=== PATIENT | female | born 1970 | race African-American/Black ===

== ENCOUNTER 2016-09-03 15:34 | Emergency (ER) | payer OTHER ==
[~2016-09-03] VITALS: Ht 162.6 cm; Wt 81.6 kg
[~2016-09-03 15:34] MED LIST: CYCL10TA2 PO; DOXY100C2 PO; HYDR-971 PO; PRED50TA PO
[2016-09-03 16:44] VITALS: BP 130/79
[2016-09-03] MEDS ORDERED: FLUC150T PO (17:19)
[2016-09-03] MEDS ORDERED: AMOX1TAB61 PO (17:19)
[2016-09-03] MEDS ORDERED: GUAI120L35 PO (17:19)
--- NOTE | 2016-09-03 17:20 | PHYS DOC ---
Past Medical History Past Medical History: Anxiety, Asthma, Depression, Fibromyalgia Additional Past Medical Histor: PTSD, DEGENERATIVE BONE DISEASE, STEP GATE DYSFUNCTION, Lupus Past Surgical History: Cholecystectomy, Tonsillectomy Additional Past Surgical Histo: BLADDER SLING Alcohol Use: None Drug Use: None Adult General Chief Complaint Chief Complaint: Congestion HPI HPI Patient is a 46 year old female presents emergency Department today with complaint of sinus pressure and pain as well as nasal congestion, nonproductive cough and subjective fevers and chills that began 3 days ago. Patient states that she has a history of lupus. She is on immunosuppressive drugs. This is primarily for protection of her kidneys. She denies antibiotic use, hospitalization or foreign travel within the past 90 days. She denies any concerns for today. Review of Systems Review of Systems Constitutional: Denies fever or chills [] Eyes: Denies change in visual acuity, redness, or eye pain [] HENT: Denies nasal congestion or sore throat [] Respiratory: Denies cough or shortness of breath [] Cardiovascular: No additional information not addressed in HPI [] GI: Denies abdominal pain, nausea, vomiting, bloody stools or diarrhea [] : Denies dysuria or hematuria [] Musculoskeletal: Denies back pain or joint pain [] Integument: Denies rash or skin lesions [] Neurologic: Denies headache, focal weakness or sensory changes [] Endocrine: Denies polyuria or polydipsia [] Allergies Allergies Allergies Coded Allergies Type Severity Reaction Last Updated Verified hydrocodone Allergy Intermediate Rash 05/08/16 Yes latex Allergy Intermediate 05/08/16 Yes Physical Exam Physical Exam Constitutional: Well developed, well nourished, no acute distress, non-toxic appearance. [] HENT: Normocephalic, atraumatic, bilateral external ears normal, oropharynx moist, no oral exudates, nose normal. [] Eyes: PERRLA, EOMI, conjunctiva normal, no discharge. [] Neck: Normal range of motion, no tenderness, supple, no stridor. [] Cardiovascular:Heart rate regular rhythm, no murmur [] Lungs & Thorax: Bilateral breath sounds clear to auscultation [] Abdomen: Bowel sounds normal, soft, no tenderness, no masses, no pulsatile masses. [] Skin: Warm, dry, no erythema, no rash. [] Back: No tenderness, no CVA tenderness. [] Extremities: No tenderness, no cyanosis, no clubbing, ROM intact, no edema. [] Neurologic: Alert and oriented X 3, normal motor function, normal sensory function, no focal deficits noted. [] Psychologic: Affect normal, judgement normal, mood normal. [] Current Patient Data Vital Signs Vital Signs Date Time Temp Pulse Resp B/P Pulse Ox O2 Delivery O2 Flow Rate FiO2 09/03/16 16:44 98.6 82 18 130/79 100 Room Air 98.6 EKG EKG [] Radiology/Procedures Radiology/Procedures [] Course & Med Decision Making Course & Med Decision Making Pertinent Labs and Imaging studies reviewed. (See chart for details) [] Dragon Disclaimer Dragon Disclaimer This electronic medical record was generated, in whole or in part, using a voice recognition dictation system. Departure Departure Impression: Primary Impression: Sinusitis, acute Disposition: HOME, SELF-CARE Condition: GOOD Referrals: DC CALLOWAY MD (PCP) Patient Instructions: Sinusitis, [id number] Additional Instructions: 1. Take the medication as prescribed. You can use Afrin nasal spray (over-the- counter) twice a day for 3 days. You can also use an pdyy-xxl-owftodw decongestant such as Mucinex D twice a day as well. Be sure you drink 8-10, 10 ounce glasses of water daily 2. Review the discharge instructions provided for self-care and reasons to return the emergency department. 3. Contact primary care doctor for follow-up reevaluation on or Saturday of this week. Scripts Guaifenesin/Codeine Phosphate (Codeine-Guaifen 10-100 mg/5 ml)120 Ml [id number] Ml PO Q8HRS COUGH #120 LIQUID Prov:MORENA CABALLERO 09/03/16 Fluconazole (Diflucan)150 Mg Tablet1 Tab PO ONCE #1 TAB Ref 1 Prov:MORENA CABALLERO 09/03/16 Amoxicillin/Potassium Clav (Augmentin 875-125 Tablet)1 Each Tablet1 Tab PO BID # 20 TAB Prov:MORENA CABALLERO 09/03/16 MORENA CABALLERO Sep 03, 2016 17:20
== END 2016-09-03 17:32 | disposition home or self-care (01) ==
LOC: ER 15:34
DX: J01.90 Acute sinusitis, unspecified (principal); J45.909 Unspecified asthma, uncomplicated; M79.7 Fibromyalgia; F43.10 Post-traumatic stress disorder, unspecified; M32.9 Systemic lupus erythematosus, unspecified; Z90.89 Acquired absence of other organs; Z91.040 Latex allergy status; Z88.5 Allergy status to narcotic agent
CPT/HCPCS: 99283

== ENCOUNTER 2017-03-27 20:27 | Emergency (ER) | payer OTHER ==
[~2017-03-27] VITALS: Ht 162.6 cm; Wt 88.5 kg
[~2017-03-27 20:27] MED LIST changes: +AMOX1TAB61 PO; +FLUC150T PO; +GUAI120L35 PO
[2017-03-27 20:36] VITALS: BP 138/67
--- NOTE | 2017-03-27 21:00 | PHYS DOC ---
Past Medical History Past Medical History: Anxiety, Asthma, Depression, Fibromyalgia Additional Past Medical Histor: PTSD, DEGENERATIVE BONE DISEASE, STEP GATE DYSFUNCTION, Lupus Past Surgical History: Cholecystectomy, Tonsillectomy Additional Past Surgical Histo: BLADDER SLING Alcohol Use: None Drug Use: None Adult General Chief Complaint Chief Complaint: MECHANICAL FALL HPI HPI Patient is a 46 year old female presents to the emergency department stating that 300 this morning she fell in the bathtub. She states that she was running out of the bathtub when her right arm gave out and she fell. She states that she has having cervical spine pain thoracic spine or lumbar spine pain with right lower back pain and discomfort. Patient is also complaining of right shoulder pain and discomfort. Peripheral pulses are 2+ cap refill brisk less than 2 seconds. Equal ore crusher noted bilaterally. Review of Systems Review of Systems Constitutional: Denies fever or chills [] Eyes: Denies change in visual acuity, redness, or eye pain [] HENT: Denies nasal congestion or sore throat [] Respiratory: Denies cough or shortness of breath [] Cardiovascular: No additional information not addressed in HPI [] GI: Denies abdominal pain, nausea, vomiting, bloody stools or diarrhea [] : Denies dysuria or hematuria [] Musculoskeletal: Complaint of spine pain and discomfort, right hip pain and discomfort and right shoulder pain and discomfort Integument: Denies rash or skin lesions [] Neurologic: Denies headache, focal weakness or sensory changes [] Endocrine: Denies polyuria or polydipsia [] Current Medications Current Medications Current Medications Medications (Trade) Dose Ordered Sig/Amarilys Start Time Stop Time Status Last Admin Dose Admin Cyclobenzaprine HCl (Flexeril) 10 mg 1X ONCE 03/27/17 21:15 03/27/17 21:16 DC 03/27/17 21:02 10 MG Ibuprofen (Motrin) 800 mg 1X ONCE 03/27/17 21:15 03/27/17 21:16 DC 03/27/17 21:02 800 MG Allergies Allergies Allergies Coded Allergies Type Severity Reaction Last Updated Verified hydrocodone Allergy Intermediate Rash 05/08/16 Yes latex Allergy Intermediate 05/08/16 Yes Physical Exam Physical Exam Constitutional: Well developed, well nourished, no acute distress, non-toxic appearance. [] HENT: Normocephalic, atraumatic, bilateral external ears normal, oropharynx moist, no oral exudates, nose normal. [] Eyes: PERRLA, EOMI, conjunctiva normal, no discharge. [] Neck: Normal range of motion, no tenderness, supple, no stridor. [] Cardiovascular:Heart rate regular rhythm, no murmur [] Lungs & Thorax: Bilateral breath sounds clear to auscultation [] Abdomen: Bowel sounds normal, soft, no tenderness, no masses, no pulsatile masses. [] Skin: Warm, dry, no erythema, no rash. No bruising or discoloration in the lower back area. Back: Patient with cervical spine, thoracic spine or lumbar spine tenderness. Patient was noted to have right lower lumbar pain and discomfort. No step-offs no deformities and no crepitus noted. C-collar was placed. Extremities: Right shoulder tenderness, no cyanosis, no clubbing, ROM intact, no edema. Equal ore crusher noted by bilateral upper extremities. Patient was noted to have full range of motion of the right shoulder as she was leaning around to help for her sweat pants down for evaluation of the lower back area. Neurologic: Alert and oriented X 3, normal motor function, normal sensory function, no focal deficits noted. [] Psychologic: Affect normal, judgement normal, mood normal. [] Current Patient Data Vital Signs Vital Signs Date Time Temp Pulse Resp B/P (MAP) Pulse Ox O2 Delivery O2 Flow Rate FiO2 03/27/17 20:36 98.1 90 18 100 Room Air 98.1 EKG EKG [] Radiology/Procedures Radiology/Procedures [][facility] [address] [place] [address] IMAGING REPORT Signed PATIENT: LEXIE AGUILAR ACCOUNT: [id number] : 1970 LOCATION: ER AGE: 46 SEX: F EXAM STATUS: REG ER ORD. PHYSICIAN: LARA VERA APRN REASON: neck pain after falling in bath tub PROCEDURE: CT CERVICAL SPINE WO CONTRAST CT cervical spine History: Fall, pain. Comparison: None. Technique: Noncontrast CT of the cervical spine was performed using helical technique. Axial, sagittal, coronal reconstructions were obtained. Exposure: One or more of the following individualized dose reduction techniques were utilized for this examination: 1. Automated exposure control 2. Adjustment of the mA and/or kV according to patient size 3. Use of iterative reconstruction technique Findings: There is no evidence of acute fracture or acute malalignment involving the cervical spine. No prevertebral soft tissue swelling is identified. There is reversal of normal cervical lordosis which may be from positioning or spasm. Multilevel degeneration is seen. Impression: No evidence of acute traumatic injury involving the cervical spine. Electronically signed by: Marcin Scott MD (03/27/2017 9:40 PM) [facility] DICTATED and SIGNED BY: MARCIN SCOTT MD DATE: 03/27/172137 CC: DC CALLOWAY MD; LARA VERA APRN ~ [facility] [address] [place] [address] IMAGING REPORT Signed PATIENT: LEXIE AGUILAR ACCOUNT: [id number] : 1970 LOCATION: ER AGE: 46 SEX: F EXAM STATUS: REG ER ORD. PHYSICIAN: LARA VERA APRN REASON: fall in bath tub this morning pain to entire spine PROCEDURE: CT LUMBAR SPINE WO CONTRAST CT of the thoracic and lumbar spine History: Fall in bathtub, back pain. Technique: Noncontrast CT of the thoracic and lumbar spine was performed. Axial, sagittal, and coronal 2-D reconstructions were obtained of both the thoracic and lumbar spine. Exposure: One or more of the following individualized dose reduction techniques were utilized for this examination: 1. Automated exposure control 2. Adjustment of the mA and/or kV according to patient size 3. Use of iterative reconstruction technique Findings: There is no evidence of acute traumatic injury involving the thoracic spine. Alignment appears anatomic. There are 11 rib-bearing thoracic-type vertebral bodies. T12 vertebral body is without significant rib formation. There is no evidence of acute traumatic injury involving the lumbar spine. Alignment appears anatomic. Transitional anatomy is seen with partial sacralization of the L5 vertebral body. Advanced facet degeneration is seen at L4-5 with lesser facet degeneration at L3-4 and L5-S1. There is suspected spinal stenosis at L4-5. There is suspected ectopic right pelvic kidney. Impression: 1. No evidence of acute traumatic injury to the thoracic or lumbar spine. 2. Transitional anatomy. 3. Lumbar degeneration. Suspect spinal stenosis at L4-5. Electronically signed by: Marcin Scott MD (03/27/2017 9:48 PM) [facility] DICTATED and SIGNED BY: MARCIN SCOTT MD DATE: 03/27/172140 CC: DC CALLOWAY MD; LARA VERA APRN ~ [facility] [address] [place] [address] IMAGING REPORT Signed PATIENT: LEXIE AGUILAR ACCOUNT: [id number] : 1970 LOCATION: ER AGE: 46 SEX: F EXAM STATUS: REG ER ORD. PHYSICIAN: LARA VERA APRN REASON: fall in bath tub this morning pain to entire spine PROCEDURE: CT THORACIC SPINE WO CONTRAST CT of the thoracic and lumbar spine History: Fall in bathtub, back pain. Technique: Noncontrast CT of the thoracic and lumbar spine was performed. Axial, sagittal, and coronal 2-D reconstructions were obtained of both the thoracic and lumbar spine. Exposure: One or more of the following individualized dose reduction techniques were utilized for this examination: 1. Automated exposure control 2. Adjustment of the mA and/or kV according to patient size 3. Use of iterative reconstruction technique Findings: There is no evidence of acute traumatic injury involving the thoracic spine. Alignment appears anatomic. There are 11 rib-bearing thoracic-type vertebral bodies. T12 vertebral body is without significant rib formation. There is no evidence of acute traumatic injury involving the lumbar spine. Alignment appears anatomic. Transitional anatomy is seen with partial sacralization of the L5 vertebral body. Advanced facet degeneration is seen at L4-5 with lesser facet degeneration at L3-4 and L5-S1. There is suspected spinal stenosis at L4-5. There is suspected ectopic right pelvic kidney. Impression: 1. No evidence of acute traumatic injury to the thoracic or lumbar spine. 2. Transitional anatomy. 3. Lumbar degeneration. Suspect spinal stenosis at L4-5. Electronically signed by: Marcin Scott MD (03/27/2017 9:48 PM) [facility] DICTATED and SIGNED BY: MARCIN SCOTT MD DATE: 03/27/172140 CC: DC CALLOWAY MD; LARA VERA APRN ~ Course & Med Decision Making Course & Med Decision Making Pertinent Labs and Imaging studies reviewed. (See chart for details) CT scan of the cervical spine thoracic spine or lumbar spine was negative cervix c-collar was removed. X-rays of the shoulder in the hip and pelvis were negative for any bony abnormalities per Dr. Carpenter. Patient will be discharged home with recommendations for ibuprofen 800 mg every 8 hours with Flexeril. Patient was instructed Flexeril will cause drowsiness do not take any be alert and oriented. Recommended ice packs on 20 minutes off 20 minutes several times a day. Patient was recommended to follow-up with her primary care physician in the next 7-10 days. Patient will be discharged home in stable condition with signs and symptoms to return back to emergency department. All questions and concerns been answered at patient's bedside. [] Dragon Disclaimer Dragon Disclaimer This electronic medical record was generated, in whole or in part, using a voice recognition dictation system. Departure Departure Impression: Primary Impression: Fall in bathtub Additional Impressions: Back pain Right hip pain Disposition: 01 HOME, SELF-CARE Condition: STABLE Referrals: DC CALLOWAY MD (PCP) Patient Instructions: Back Pain, Adult, [id number], Fall Prevention and Home Safety, Arku-ki-Yesr, Hip Pain Additional Instructions: Activity as tolerated. Medication as prescribed. Ibuprofen 800 mg every 8 hours with food stop taking few develop an upset stomach. Flexeril will cause drowsiness do not take any be alert and oriented. Ice packs on 20 minutes off 20 minutes several times a day. Elevation as much as possible. Follow-up to primary care physician next 7-10 days. Return back to emergency prior signs symptoms become worse. Scripts Cyclobenzaprine Hcl (CYCLOBENZAPRINE HCL) 10 Mg Tablet 1 TAB PO TID Y for MUSCLE SPASMS, #30 TAB Prov: LARA VERA APRN 03/27/17 Problem Qualifiers Primary Impression: Fall in bathtub Encounter type: initial encounter Qualified Codes: W18.2XXA - Fall in (into ) shower or empty bathtub, initial encounter Additional Impressions: Back pain Back pain location: back pain in unspecified location Chronicity: unspecified Back pain laterality: unspecified Qualified Codes: M54.9 - Dorsalgia, unspecified LARA VERA BLOOD DONOR RECRUITER Mar 27, 2017 21:00
[2017-03-27] MEDS ORDERED: IBUPROFEN 800 MG TABLET. PO ONE (21:15)
[2017-03-27] MEDS ORDERED: CYCLOBENZAPRINE 10 MG TABLET. PO ONE (21:15)
--- NOTE | 2017-03-27 21:44 | RAD ---
CT cervical spine History: Fall, pain. Comparison: None. Technique: Noncontrast CT of the cervical spine was performed using helical technique. Axial, sagittal, coronal reconstructions were obtained. Exposure: One or more of the following individualized dose reduction techniques were utilized for this examination: 1. Automated exposure control 2. Adjustment of the mA and/or kV according to patient size 3. Use of iterative reconstruction technique Findings: There is no evidence of acute fracture or acute malalignment involving the cervical spine. No prevertebral soft tissue swelling is identified. There is reversal of normal cervical lordosis which may be from positioning or spasm. Multilevel degeneration is seen. Impression: No evidence of acute traumatic injury involving the cervical spine. Electronically signed by: Marcin Manzanares MD (03/27/2017 9:40 PM) [facility]
--- NOTE | 2017-03-27 21:51 | RAD ---
CT of the thoracic and lumbar spine History: Fall in bathtub, back pain. Technique: Noncontrast CT of the thoracic and lumbar spine was performed. Axial, sagittal, and coronal 2-D reconstructions were obtained of both the thoracic and lumbar spine. Exposure: One or more of the following individualized dose reduction techniques were utilized for this examination: 1. Automated exposure control 2. Adjustment of the mA and/or kV according to patient size 3. Use of iterative reconstruction technique Findings: There is no evidence of acute traumatic injury involving the thoracic spine. Alignment appears anatomic. There are 11 rib-bearing thoracic-type vertebral bodies. T12 vertebral body is without significant rib formation. There is no evidence of acute traumatic injury involving the lumbar spine. Alignment appears anatomic. Transitional anatomy is seen with partial sacralization of the L5 vertebral body. Advanced facet degeneration is seen at L4-5 with lesser facet degeneration at L3-4 and L5-S1. There is suspected spinal stenosis at L4-5. There is suspected ectopic right pelvic kidney. Impression: 1. No evidence of acute traumatic injury to the thoracic or lumbar spine. 2. Transitional anatomy. 3. Lumbar degeneration. Suspect spinal stenosis at L4-5. Electronically signed by: Marcin Manzanares MD (03/27/2017 9:48 PM) [facility]
[2017-03-27] MEDS ORDERED: CYCL10TA2 PO (22:12)
--- NOTE | 2017-03-28 07:54 | RAD ---
Indication fall. A. Internally and externally rotated views of the right shoulder as well as a Y view were obtained. No bony abnormality is seen.
--- NOTE | 2017-03-28 07:55 | RAD ---
Indication fall. Pain. An AP view of the pelvis was obtained as well as targeted AP and frog leg views of the right hip. No acute or significant bony finding is seen.
== END 2017-03-27 22:17 | disposition home or self-care (01) ==
LOC: ER 20:27
DX: M54.5 Low back pain (principal); M25.511 Pain in right shoulder; M79.7 Fibromyalgia; F43.10 Post-traumatic stress disorder, unspecified; M32.9 Systemic lupus erythematosus, unspecified; J45.909 Unspecified asthma, uncomplicated; Z90.49 Acquired absence of other specified parts of digestive tract; Z88.5 Allergy status to narcotic agent; Z91.040 Latex allergy status; W18.2XXA Fall in (into) shower or empty bathtub, initial encounter; Y93.E1 Activity, personal bathing and showering; Y99.8 Other external cause status; Y92.89 Other specified places as the place of occurrence of the external cause
CPT/HCPCS: 72125; 72128; 72131; 73030; 73502; 99284-25

== ENCOUNTER 2017-10-15 20:38 | Emergency (ER) | payer OTHER ==
[2017-10-15 20:56] LABS: URINE HCG POC HCG NEGATIVE (Negative)
[2017-10-15 21:05] LABS: BILIRUBIN,URINE NEGATIVE (NEG); CLARITY,URINE CLEAR; COLOR,URINE YELLOW; GLUCOSE,URINE NEGATIVE (NEG); NITRITE,URINE NEGATIVE (NEG); PH,URINE 5.5; PROTEIN,URINE 100 mg/dL (NEG-TRACE)
[2017-10-15 21:09] LABS: BACTERIA,URINE FEW /HPF (0-FEW); RBC,URINE 0 /HPF (0-2); SQUAMOUS EPITHELIAL CELL,UR MOD /LPF
[2017-10-15 21:22] LABS: ADD MAN DIFF? NO
[2017-10-15 21:32] LABS: BASO # 0.1 x10^3/uL (0.0-0.2); BASO % 1 % (0-3); EOS % 0 % (0-3); HEMATOCRIT 34.5 % (36.0-47.0); HEMOGLOBIN 11.2 g/dL (12.0-15.5); LYMPH # 1.7 x10^3/uL (1.0-4.8); LYMPH % 15 % (24-48); MEAN CORPUSCULAR HEMOGLOBIN 25 pg (25-35); MEAN CORPUSCULAR HGB CONC 32 g/dL (31-37); MEAN CORPUSCULAR VOLUME 77 fL (79-100); MONO # 1.2 x10^3/uL (0.0-1.1); MONO % 10 % (0-9); NEUT # 8.8 x10^3uL (1.8-7.7); NEUT % 75 % (31-73); PLATELET COUNT 260 x10^3/uL (140-400); RED CELL DISTRIBUTION WIDTH 16.5 % (11.5-14.5); WHITE BLOOD COUNT 11.8 x10^3/uL (4.0-11.0)
[2017-10-15] MEDS: IV NORMAL SALINE 1000ML BAG 1,000 ML IV (21:35)
[2017-10-15] MEDS: KETOROLAC 30 MG/ML INJ. IV (21:35)
[2017-10-15 21:41] LABS: ANION GAP 10 (6-14); BLOOD UREA NITROGEN 10 mg/dL (7-20); BUN/CREATININE RATIO 8 (6-20); CALCIUM 9.1 mg/dL (8.5-10.1); CARBON DIOXIDE 26 mmol/L (21-32); CHLORIDE 103 mmol/L (98-107); CREATININE 1.2 mg/dL (0.6-1.0); GFR 57.8; GLUCOSE 94 mg/dL (70-99); POTASSIUM 3.7 mmol/L (3.5-5.1); SODIUM 139 mmol/L (136-145)
[2017-10-15 21:45] LABS: ALBUMIN 3.4 g/dL (3.4-5.0); ALBUMIN/GLOBULIN RATIO 0.8 (1.0-1.7); ALK PHOS 69 U/L (46-116); ALT (SGPT) 20 U/L (14-59); AST (SGOT) 17 U/L (15-37); LIPASE 164 U/L (73-393); TOTAL BILIRUBIN 0.7 mg/dL (0.2-1.0); TOTAL PROTEIN 7.8 g/dL (6.4-8.2)
[2017-10-17 14:35] LABS: CHLAMYDIA PROBE Negative (Negative); GC PROBE Negative (Negative)
== END 2017-10-15 22:22 | disposition home or self-care (01) ==
LOC: ER 20:38
DX: N76.0 Acute vaginitis (principal); B96.89 Other specified bacterial agents as the cause of diseases classified elsewhere; R10.84 Generalized abdominal pain; R10.2 Pelvic and perineal pain; F43.10 Post-traumatic stress disorder, unspecified; M32.9 Systemic lupus erythematosus, unspecified; M79.7 Fibromyalgia; J45.909 Unspecified asthma, uncomplicated; Z90.49 Acquired absence of other specified parts of digestive tract; Z88.5 Allergy status to narcotic agent; Z91.040 Latex allergy status
CPT/HCPCS: 36415; 74176; 80053; 81001; 81025; 83690; 85025; 87086; 87491; 87591; 96361; 96374; 99285-25; J1885; J7030; Q0111

== ENCOUNTER 2018-08-04 17:27 | Emergency (ER) | payer OTHER ==
[~2018-08-04] VITALS: Ht 162.6 cm; Wt 92.5 kg
[~2018-08-04 17:27] MED LIST changes: +DICL50TA4 PO; +HYDR-3164 PO; -HYDR-971 PO; +METR500T PO
[2018-08-04 19:00] VITALS: BP 158/118
[2018-08-04] MEDS ORDERED: FLUC150T PO (19:13)
--- NOTE | 2018-08-04 19:13 | PHYS DOC ---
Past Medical History Past Medical History: Anxiety, Asthma, Depression, Fibromyalgia, Other Additional Past Medical Histor: PTSD,DEGENERATIVE BONE DISEASE,STEP GATE DYSFUNCTION,Lupus (REMA JAUREGUI APRN) Past Surgical History: Cholecystectomy, , Tonsillectomy, Other Additional Past Surgical Histo: BLADDER SLING (REMA JAUREGUI APRN) Alcohol Use: None Drug Use: Marijuana (REMA JAUREGUI APRN) Adult General Chief Complaint Chief Complaint: VAGINAL PROBLEM HPI HPI Patient is a 48-year-old female presenting today requesting treatment for yeast infection. She states she's had vaginal discharge for a couple days consistent with yeast infection. She is requesting treatment and no testing. Denies any concerns for STD. (REMA JAUREGUI APRN) Review of Systems Review of Systems Constitutional: Denies fever or chills [] GI: Denies abdominal pain, nausea, vomiting, bloody stools or diarrhea [] female : Reports vaginal discharge : Denies dysuria or hematuria [] Musculoskeletal: Denies back pain or joint pain [] Integument: Denies rash or skin lesions [] Neurologic: Denies headache, focal weakness or sensory changes [] [] All other systems were reviewed and found to be within normal limits, except as documented in this note. (REMA JAUREGUI APRN) Allergies Allergies Allergies Coded Allergies Type Severity Reaction Last Updated Verified hydrocodone Allergy Intermediate Rash 05/08/16 Yes latex Allergy Intermediate 05/08/16 Yes (MARJORIE SCHWARTZ MD) Physical Exam Physical Exam Constitutional: Well developed, well nourished, no acute distress, non-toxic appearance. [] Abdomen: Bowel sounds normal, soft, no tenderness, no masses, no pulsatile masses. [] pelvic-patient refused Skin: Warm, dry, no erythema, no rash. [] Back: No tenderness, no CVA tenderness. [] Extremities: No tenderness, no cyanosis, no clubbing, ROM intact, no edema. [] Neurologic: Alert and oriented X 3, normal motor function, normal sensory function, no focal deficits noted. [] Psychologic: Affect normal, judgement normal, mood normal. [] (REMA JAUREGUI APRN) Current Patient Data Vital Signs Vital Signs Date Time Temp Pulse Resp B/P (MAP) Pulse Ox O2 Delivery O2 Flow Rate FiO2 2/25/19 19:00 99.0 93 17 158/118 (131) 100 Room Air 99.0 (MARJORIE SCHWARTZ MD) EKG EKG [] (REMA JAUREGUI APRN) Radiology/Procedures Radiology/Procedures [] (REMA JAUREGUI APRN) Course & Med Decision Making Course & Med Decision Making Pertinent Labs and Imaging studies reviewed. (See chart for details) This is a 48-year-old female patient presenting to the ED today requesting treatment for yeast infection. She states she's had discharge consistent with yeast infection for couple days. She has refused to be tested. Prescription for fluconazole given. Follow-up with PCP or [employer] in 1-2 weeks. (REMA JAUREGUI APRN) Course & Med Decision Making Staff Physician Addendum: I was working in the ER during the course of this patient's visit. I was available for consultation as needed, but I was not directly involved in the care of this patient. (MARJORIE SCHWARTZ MD) Dragon Disclaimer Dragon Disclaimer This electronic medical record was generated, in whole or in part, using a voice recognition dictation system. (REMA JAUREGUI APRN) Departure Departure Impression: Primary Impression: Yeast infection Disposition: 01 HOME, SELF-CARE Condition: STABLE Referrals: DC CALLOWAY MD (PCP) Follow-up in 1-2 weeks Patient Instructions: Janis Infection, Adult Additional Instructions: You were evaluated for yeast infection, prescription for fluconazole was given. Follow-up with your doctor in 1-2 weeks. Scripts Fluconazole (DIFLUCAN) 150 Mg Tablet 1 TAB PO ONCE, #1 TAB 1 Refill Prov: REMA JAUREGUI APRN 08/04/18 REMA JAUREGUI APRN Aug 04, 2018 19:13 MARJORIE SCHWARTZ MD Aug 04, 2018 21:47
== END 2018-08-04 19:26 | disposition home or self-care (01) ==
LOC: ER 17:27
DX: B37.9 Candidiasis, unspecified (principal); N89.8 Other specified noninflammatory disorders of vagina; J45.909 Unspecified asthma, uncomplicated; Z91.040 Latex allergy status; Z88.5 Allergy status to narcotic agent
CPT/HCPCS: 99283

== ENCOUNTER 2018-09-17 13:59 | Emergency (ER) | payer OTHER ==
[~2018-09-17] VITALS: Ht 162.6 cm; Wt 83.9 kg
[2018-09-17 14:18] VITALS: BP 144/87
[2018-09-17] MEDS ORDERED: predniSONE 10 MG TABLET PO ONE (14:30)
[2018-09-17] MEDS ORDERED: IPRATRPIUM/ALBUTEROL 0.5/2.5MG 3 ML NEBU. NEB ONE (14:30)
--- NOTE | 2018-09-17 14:48 | PHYS DOC ---
Past Medical History Past Medical History: Anxiety, Asthma, Depression, Fibromyalgia, Other Additional Past Medical Histor: PTSD,DEGENERATIVE BONE DISEASE,STEP GATE DYSFUNCTION,Lupus Past Surgical History: Cholecystectomy, , Tonsillectomy, Other Additional Past Surgical Histo: BLADDER SLING, R arm Alcohol Use: Rarely Drug Use: Marijuana Adult General Chief Complaint Chief Complaint: Congestion HPI HPI Patient is a 48 year old female with history of fibromyalgia, depression, anxiety, asthma, who presents to the ED today with multiple complaints. Patient is complaining of a cough productive in nature with greenish sputum, nasal congestion, mild frontal headache sore throat, symptoms began 5 days ago. Denies any actual fever. Denies any chest pain or shortness of breath. She states she tried her breathing treatments with no relief of her symptoms. She also states she has seasonal allergies and has been trying pciu-amq-qzgrblw remedies but she doesn't remember the names. On further interrogation she states she is on Flonase. Review of Systems Review of Systems Constitutional: Denies fever or chills [] Eyes: Denies change in visual acuity, redness, or eye pain [] HENT: Reports nasal congestion and sore throat [] Respiratory: Reports a productive cough, denies shortness of breath [] Cardiovascular: No additional information not addressed in HPI [] GI: Denies abdominal pain, nausea, vomiting, bloody stools or diarrhea [] : Denies dysuria or hematuria [] Musculoskeletal: Denies back pain or joint pain [] Integument: Denies rash or skin lesions [] Neurologic: Reports headache, denies focal weakness or sensory changes [] All other systems were reviewed and found to be within normal limits, except as documented in this note. Current Medications Current Medications Current Medications Medications (Trade) Dose Ordered Sig/Amarilys Start Time Stop Time Status Last Admin Dose Admin Albuterol/ Ipratropium (Duoneb) 3 ml 1X ONCE 09/17/18 14:30 09/17/18 14:31 DC 09/17/18 14:52 3 ML Prednisone (Prednisone) 50 mg 1X ONCE 09/17/18 14:30 09/17/18 14:31 DC 09/17/18 14:54 50 MG Allergies Allergies Allergies Coded Allergies Type Severity Reaction Last Updated Verified hydrocodone Allergy Intermediate Rash 05/08/16 Yes latex Allergy Intermediate 05/08/16 Yes Physical Exam Physical Exam Constitutional: Well developed, well nourished, no acute distress, non-toxic appearance. [] HENT: Normocephalic, atraumatic, bilateral external ears normal, oropharynx moist, no oral exudates, nose normal. [] Eyes: PERRLA, EOMI, conjunctiva normal, no discharge. [] Neck: Normal range of motion, no tenderness, supple, no stridor. [] Cardiovascular:Heart rate regular rhythm, no murmur [] Lungs & Thorax: Bilateral breath sounds clear to auscultation [] Abdomen: Bowel sounds normal, soft, no tenderness, no masses, no pulsatile masses. [] Skin: Warm, dry, no erythema, no rash. [] Back: No tenderness, no CVA tenderness. [] Extremities: No tenderness, no cyanosis, no clubbing, ROM intact, no edema. [] Neurologic: Alert and oriented X 3, normal motor function, normal sensory function, no focal deficits noted. Cranial nerves II through XII intact Psychologic: Affect normal, judgement normal, mood normal. [] Current Patient Data Vital Signs Vital Signs Date Time Temp Pulse Resp B/P (MAP) Pulse Ox O2 Delivery O2 Flow Rate FiO2 09/17/18 14:56 Room Air 09/17/18 14:18 99.4 86 16 144/87 (106) 96 99.4 EKG EKG [] Radiology/Procedures Radiology/Procedures []PROCEDURE: CHEST PA & LATERAL Chest, PA and Lateral: Technique: PA and lateral views of the chest were obtained. History: Cough. Comparison: 06/17/2013. Findings: The heart and pulmonary vasculature appear within normal limits. The lungs are clear. The pleural margins are clear. Impression: No acute chest process is seen. Electronically signed by: Nestor Ritchie MD (09/17/2018 3:05 PM) [facility] DICTATED and SIGNED BY: NESTOR RITCHIE MD DATE: 09/17/18 0695 Course & Med Decision Making Course & Med Decision Making Pertinent Labs and Imaging studies reviewed. (See chart for details) This is a 48-year-old female patient presenting to the ED today with a productive cough, nasal congestion, sore throat, headache, symptoms began 5 days ago. Has history of asthma anxiety and seasonal allergies, she feels both of flared up. Patient is in no distress. Vitals are stable. Chest x-ray is negative. Given a DuoNeb treatment, lungs have stayed clear. Also started on prednisone. Patient was discharged to home. Encouraged to take rguh-xpb-cputcra Claritin-D or Zyrtec-D, encouraged to continue using Flonase, given prescription for prednisone. Encouraged to continue breathing treatments at home. Follow-up with the PCP in 1-2 weeks. Dragon Disclaimer Dragon Disclaimer This electronic medical record was generated, in whole or in part, using a voice recognition dictation system. Departure Departure Impression: Primary Impression: Asthma Additional Impression: Seasonal allergies Disposition: HOME, SELF-CARE Condition: STABLE Referrals: DC CALLOWAY MD (PCP) follow up in 1-2 weeks Patient Instructions: Allergies, Generic, Asthma, Adult Additional Instructions: You were evaluated in the emergency room for seasonal allergies as well as asthma symptoms. Continue using breathing treatments as needed. Take the prescribed prednisone as ordered. Consider taking Claritin-D or Zyrtec-D it will help with allergies as well as congestion. Continue using Flonase. Scripts Albuterol Sulfate (VENTOLIN HFA INHALER) 18 Gm Hfa.aer.ad 2 PUFF INH Q4HRS for FOR ASTHMA, #1 INHALER 0 Refills Prov: REMA JAUREGUI APRN 09/17/18 Prednisone (PREDNISONE) 50 Mg Tablet 1 TAB PO DAILY, #4 TAB Prov: REMA JAUREGUI APRN 09/17/18 Problem Qualifiers Primary Impression: Asthma Asthma severity: mild Asthma persistence: intermittent Asthma complication type: uncomplicated Qualified Codes: J45.20 - Mild intermittent asthma, uncomplicated REMA JAUREGUI APRN Sep 17, 2018 14:48
--- NOTE | 2018-09-17 15:08 | RAD ---
Chest, PA and Lateral: Technique: PA and lateral views of the chest were obtained. History: Cough. Comparison: 06/17/2013. Findings: The heart and pulmonary vasculature appear within normal limits. The lungs are clear. The pleural margins are clear. Impression: No acute chest process is seen. Electronically signed by: Nestor Ritchie MD (09/17/2018 3:05 PM) [id number]
[2018-09-17] MEDS ORDERED: PRED50TA PO (15:41)
[2018-09-17] MEDS ORDERED: VENTOLIN HFA18 GM INH (15:41)
== END 2018-09-17 15:46 | disposition home or self-care (01) ==
LOC: ER 13:59
DX: J45.20 Mild intermittent asthma, uncomplicated (principal); J30.2 Other seasonal allergic rhinitis; R51 Headache; F41.9 Anxiety disorder, unspecified; F32.9 Major depressive disorder, single episode, unspecified; Z90.49 Acquired absence of other specified parts of digestive tract; Z90.89 Acquired absence of other organs; Z98.890 Other specified postprocedural states; Z88.5 Allergy status to narcotic agent; Z91.040 Latex allergy status
CPT/HCPCS: 71046; 87070; 87880; 94640; 99284; J7512; J7620

== ENCOUNTER 2019-08-12 11:43 | Emergency (ER) | payer MEDICAID, OTHER ==
[~2019-08-12] VITALS: Ht 162.6 cm; Wt 92.0 kg
[~2019-08-12 11:43] MED LIST changes: +VENTOLIN HFA18 GM INH
[2019-08-12 13:54] LABS: BILIRUBIN,URINE NEGATIVE (NEG); CLARITY,URINE CLEAR; COLOR,URINE YELLOW; NITRITE,URINE NEGATIVE (NEG); PROTEIN,URINE 30 mg/dL (NEG-TRACE); UROBILINOGEN,URINE 0.2 mg/dL (0.2 mg/dL)
[2019-08-12 14:08] LABS: BACTERIA,URINE FEW /HPF (0-FEW); RBC,URINE 0 /HPF (0-2); SQUAMOUS EPITHELIAL CELL,UR FEW /LPF; WBC,URINE 0 /HPF (0-4)
[2019-08-12 14:55] VITALS: BP 138/79
--- NOTE | 2019-08-12 14:58 | RAD ---
Pelvic sonogram Clinical indications: Pelvic pain. Heavy periods. History of fibroids. Transabdominal sonography: The uterus is anteverted in position. The uterus is enlarged measuring 14.4 cm in longitudinal dimension. The AP and transverse dimensions are 0.5 cm and 8.9 cm respectively. The uterus is heterogeneous and lobulated. There are 2 prominent fibroids. There is a fibroid involving the fundus on the left side measuring 5.3 cm in size. There is another fibroid seen posteriorly within the right side of the fundus uterus measuring 4.4 cm in size. The endometrial canal is abnormally thickened measuring 17 mm. No hyperemia is seen within it. The left ovary measures 3.7 cm and 2.2 cm and 3.8 cm in size and contains a follicular cyst measuring 2 cm in size. Color Doppler flow is seen within the left ovary. The right ovary measures 3.9 cm and 2.4 cm and 4.0 cm in size and is normal. Color Doppler flow is seen within the right ovary. No adnexal mass is seen. No free fluid is evident. IMPRESSION: Abnormal thickening of the endometrial canal measuring 17 mm. 2 prominent uterine fibroids. Electronically signed by: Carlos Du MD (08/12/2019 2:55 PM) [facility] [place]
[2019-08-12] MEDS ORDERED: FLUCONAZOLE 100 MG TABLET. PO ONE (15:15)
--- NOTE | 2019-08-12 15:36 | PHYS DOC ---
Past Medical History Past Medical History: Anxiety, Asthma, Depression, Diabetes-Type II, Fibr omyalgia, Other Additional Past Medical Histor: PTSD,DEGENERATIVE BONE DISEASE,STEP GATE DYSFUNCTION,Lupus Past Surgical History: Cholecystectomy, , Tonsillectomy, Other Additional Past Surgical Histo: BLADDER SLING, R arm Smoking Status: Never Smoker Alcohol Use: Rarely Drug Use: Marijuana Adult General Chief Complaint Chief Complaint: ABDOMINAL PAIN HPI HPI Patient is a 49 year old female who presents to the ED today complaining of mild intermittent pelvic pain for 2-1/2 months and vaginal discharge with irritation for 2 days. Review of Systems Review of Systems Constitutional: Denies fever or chills [] GI: Reports pelvic pain and vaginal discharge. Denies nausea, vomiting, bloody stools or diarrhea [] : Denies dysuria or hematuria [] Musculoskeletal: Denies back pain or joint pain [] Integument: Denies rash or skin lesions [] Neurologic: Denies headache, focal weakness or sensory changes [] All other systems were reviewed and found to be within normal limits, except as documented in this note. Current Medications Current Medications Current Medications Medications (Trade) Dose Ordered Sig/Amarilys Start Time Stop Time Status Last Admin Dose Admin Fluconazole (Diflucan) 150 mg 1X ONCE 08/12/19 15:15 08/12/19 15:16 DC 08/12/19 15:13 150 MG Allergies Allergies Allergies Coded Allergies Type Severity Reaction Last Updated Verified hydrocodone Allergy Intermediate Rash 05/08/16 Yes latex Allergy Intermediate 05/08/16 Yes Physical Exam Physical Exam Constitutional: Well developed, well nourished, no acute distress, non-toxic appearance. [] Abdomen: Bowel sounds normal, soft, no tenderness, no masses, no pulsatile masses. [] pelvic exam External pelvic appears normal, cervix is not well visualized due to body habitus, no adnexal tenderness, no CMT, trace amount of white discharge in the vaginal vault. Skin: Warm, dry, no erythema, no rash. [] Back: No tenderness, no CVA tenderness. [] Extremities: No tenderness, no cyanosis, no clubbing, ROM intact, no edema. [] Neurologic: Alert and oriented X 3, normal motor function, normal sensory function, no focal deficits noted. [] Psychologic: Affect normal, judgement normal, mood normal. [] Current Patient Data Vital Signs Vital Signs Date Time Temp Pulse Resp B/P (MAP) Pulse Ox O2 Delivery O2 Flow Rate FiO2 08/12/19 14:55 82 15 138/79 (98) 99 Room Air 08/12/19 13:34 99.1 99.1 Lab Values Laboratory Tests Test 08/12/19 12:55 Urine Collection Type Unknown Urine Color Yellow Urine Clarity Clear Urine pH 5.0 Urine Specific [place] 1.015 Urine Protein 30 mg/dL (NEG-TRACE) Urine Glucose (UA) Negative mg/dL (NEG) Urine Ketones (Stick) Negative mg/dL (NEG) Urine Blood Negative (NEG) Urine Nitrite Negative (NEG) Urine Bilirubin Negative (NEG) Urine Urobilinogen Dipstick 0.2 mg/dL (0.2 mg/dL) Urine Leukocyte Esterase Negative (NEG) Urine RBC 0 /HPF (0-2) Urine WBC 0 /HPF (0-4) Urine Squamous Epithelial Cells Few /LPF Urine Bacteria Few /HPF (0-FEW) Urine Mucus Mod /LPF Microbiology 08/12/19 Wet Prep - Final, Complete EKG EKG [] Radiology/Procedures Radiology/Procedures []PROCEDURE: PELVIS COMPLETE Pelvic sonogram Clinical indications: Pelvic pain. Heavy periods. History of fibroids. Transabdominal sonography: The uterus is anteverted in position. The uterus is enlarged measuring 14.4 cm in longitudinal dimension. The AP and transverse dimensions are 0.5 cm and 8.9 cm respectively. The uterus is heterogeneous and lobulated. There are 2 prominent fibroids. There is a fibroid involving the fundus on the left side measuring 5.3 cm in size. There is another fibroid seen posteriorly within the right side of the fundus uterus measuring 4.4 cm in size. The endometrial canal is abnormally thickened measuring 17 mm. No hyperemia is seen within it. The left ovary measures 3.7 cm and 2.2 cm and 3.8 cm in size and contains a follicular cyst measuring 2 cm in size. Color Doppler flow is seen within the left ovary. The right ovary measures 3.9 cm and 2.4 cm and 4.0 cm in size and is normal. Color Doppler flow is seen within the right ovary. No adnexal mass is seen. No free fluid is evident. IMPRESSION: Abnormal thickening of the endometrial canal measuring 17 mm. 2 prominent uterine fibroids. Electronically signed by: Ann Marie Du MD (08/12/2019 2:55 PM) [facility] [place] and SIGNED BY: ANN MARIE DU MD DATE: 08/12/19 9865 Course & Med Decision Making Course & Med Decision Making Pertinent Labs and Imaging studies reviewed. (See chart for details) This is a 49-year-old female patient presenting to the ED today with vaginal itching and irritation that began 2 days ago and pelvic pain for 2-1/2 months. Urine analysis is negative for infection, wet prep noted for yeast, given fluconazole in the ED as well as discussion was made around chjb-qta-skphgkb remedies for yeast infection including probiotics/yogurt intake. Pelvic ultrasound was noted for abnormally large uterus as well as fibroids. Patient was discharged to home. Follow-up with [facility]. Dragpoppy Disclaimer Dragon Disclaimer This electronic medical record was generated, in whole or in part, using a voice recognition dictation system. Departure Departure Impression: Primary Impression: Fibroids Additional Impression: Monial infection of vagina Disposition: HOME, SELF-CARE Condition: STABLE Referrals: DC CALLOWAY MD (PCP) ISAIAH WALSH MD follow up with your OBGYN as soon as you can Patient Instructions: Candidal Vulvovaginitis, Gufl-fj-Hmsz, Fibroids, [id number]-ct-[id number] Additional Instructions: You were treated for yeast infection, you also have fibroids and enlarged uterus. We highly recommend you follow-up with an [facility] [facility] for this. Problem Qualifiers REMA JAUREGUI APRN Aug 12, 2019 15:36
[2019-08-13 19:09] LABS: GC PROBE Negative (Negative)
== END 2019-08-12 15:59 | disposition home or self-care (01) ==
LOC: ER 11:43
DX: D25.9 Leiomyoma of uterus, unspecified (principal); B37.3 Candidiasis of vulva and vagina; R10.2 Pelvic and perineal pain; J45.909 Unspecified asthma, uncomplicated; F41.9 Anxiety disorder, unspecified; F32.9 Major depressive disorder, single episode, unspecified; E11.9 Type 2 diabetes mellitus without complications; M79.7 Fibromyalgia; F43.10 Post-traumatic stress disorder, unspecified; F12.90 Cannabis use, unspecified, uncomplicated; Z90.49 Acquired absence of other specified parts of digestive tract; Z90.89 Acquired absence of other organs; Z98.890 Other specified postprocedural states; Z88.5 Allergy status to narcotic agent; Z91.040 Latex allergy status
CPT/HCPCS: 36415; 76856; 81001; 87491; 87591; 99284; Q0111

== ENCOUNTER → 2019-11-20 | Outpatient (CLI) | payer MEDICAID ==
[~2019-11-20] MED LIST changes: +ALBU2.5V5 NEB; +ALBU2.5V8 IH; +ALPR0.5T PO; +AMIT100T PO; +CETI10TA16 PO; +DICL112S2 TP; +DOCU-109 PO; +FLUO40CA2 PO; +FLUT1BLS9 IH; +FLUT1DIS3 IH; +GABA300C18 PO; +HYDR200T5 PO; +IBUP-1060 PO; +MECL-75 PO; +MONT10TA49 PO; +OXYC1TAB15 PO; +SIMV20TA18 PO; +TIZA4TAB2 PO; +TRAZ150T49 PO; +VITAMIN D PO; +[UNRECOGNIZED DRUG - OTHER] PO
== END | disposition home or self-care (01) ==
LOC: LAB 13:48
PROVIDERS: ATTEND Obstetrics & Gynecology
DX: Z11.59 Encounter for screening for other viral diseases (principal); Z88.5 Allergy status to narcotic agent; Z88.8 Allergy status to other drugs, medicaments and biological substances; Z91.040 Latex allergy status
CPT/HCPCS: C9803; U0003; 36415

== ENCOUNTER 2019-11-25 06:39 | Observation (INO) | payer MEDICAID ==
[~2019-11-25] VITALS: Ht 162.6 cm; Wt 90.7 kg
[2019-11-25] VITALS (9 sets, daily range): BP systolic 114–140; BP diastolic 57–77
[~2019-11-25 06:39] MED LIST changes: -DOCU-109 PO; -IBUP-1060 PO; -OXYC1TAB15 PO
[2019-11-25] MEDS ORDERED: LIDOCAINE 1% PF 2 ML VIAL. ID PRN (07:00)
[2019-11-25] MEDS ORDERED: IV RINGERS,LACTATED 1000ML 1,000 ML IV SCH ×2 (07:00→12:22)
[2019-11-25] MEDS ORDERED: 0.9 % SODIUM CHLORIDE 20 ML VIAL. IJ ONE (07:13)
[2019-11-25] MEDS ORDERED: MIDAZOLAM HCL/PF 2 MG/2 ML VIAL. ONE (07:41)
[2019-11-25] MEDS ORDERED: ROCURONIUM 50 MG/5 ML VIAL. ONE ×2 (07:41→08:59)
[2019-11-25] MEDS ORDERED: PROPOFOL 10 MG/ML (20ML) VIAL. IV ONE (07:41)
[2019-11-25] MEDS ORDERED: LIDOCAINE 2% PF 5 ML VIAL. ONE (07:41)
[2019-11-25] MEDS ORDERED: DEXAMETHASONE SOD PHOS 4 MG/ML VIAL ONE (07:41)
[2019-11-25] MEDS ORDERED: fentaNYL PF VIAL 100 MCG/2 ML VIAL ONE ×3 (07:41→12:04)
[2019-11-25] MEDS ORDERED: ONDANSETRON PF 4 MG/2 ML VIAL. ONE (07:41)
[2019-11-25 07:52] LABS: BASO # 0.1 x10^3/uL (0.0-0.2); BASO % 2 % (0-3); EOS # 0.2 x10^3/uL (0.0-0.7); EOS % 3 % (0-3); HEMATOCRIT 39.3 % (36.0-47.0); HEMOGLOBIN 12.7 g/dL (12.0-15.5); LYMPH # 2.2 x10^3/uL (1.0-4.8); LYMPH % 31 % (24-48); MEAN CORPUSCULAR HEMOGLOBIN 26 pg (25-35); MEAN CORPUSCULAR HGB CONC 32 g/dL (31-37); MEAN CORPUSCULAR VOLUME 79 fL (79-100); MONO # 0.6 x10^3/uL (0.0-1.1); MONO % 8 % (0-9); NEUT # 4.2 x10^3/uL (1.8-7.7); NEUT % 57 % (31-73); RED BLOOD COUNT 4.97 x10^6/uL (3.50-5.40); RED CELL DISTRIBUTION WIDTH 17.7 % (11.5-14.5); WHITE BLOOD COUNT 7.3 x10^3/uL (4.0-11.0)
[2019-11-25 08:01] LABS: CALCIUM 8.1 mg/dL (8.5-10.1); CREATININE 1.2 mg/dL (0.6-1.0); GFR 57.3; POTASSIUM 3.7 mmol/L (3.5-5.1)
[2019-11-25 08:13] LABS: PLATELET COUNT 113 x10^3/uL (140-400)
[2019-11-25 08:14] LABS: ANISOCYTOSIS SLIGHT; PLATELET CLUMP PRESENT; PLT ESTIMATE ADEQUATE (ADEQUATE)
[2019-11-25] MEDS ORDERED: SEVOFLURANE > 120 MINUTES. IH ONE (09:23)
[2019-11-25] MEDS ORDERED: NEOSTIGMINE METHYLSULFATE 5 MG/5 ML SYRINGE. ONE (10:50)
[2019-11-25] MEDS ORDERED: GLYCOPYRROLATE 1 MG/5 ML VIAL. ONE (10:50)
[2019-11-25] MEDS ORDERED: METHYLENE BLUE 0.5% 10ml AMPULE. ONE (11:17)
[2019-11-25] MEDS ORDERED: IV NORMAL SALINE 1000ML BAG 1,000 ML IV SCH (11:47)
[2019-11-25] MEDS ORDERED: IV DEXTROSE 5 %-0.45 % NACL 1,000 ML IV SCH (11:47)
--- NOTE | 2019-11-25 11:47 | PDOC4 ---
OPERATIVE NOTE: PreOp Dx: 1. AUB, 2. Menorrhagia, 3. Dysmenorrhea, 4. Pelvic pain, 5. Fibroids, 6. H/o bladder suspension with mesh, 7. H/o C/S x1, 8. Lupus, 9. Fibromyalgia, 10. Asthma PostOp Dx: same Procedure: Lysis of adhesions, LAVH/BSO, cysto Surgeon: Annie Walsh Anesthesia: GETA EBL: 500cc Fluids: 2L UOP: 500cc Complications: None Findings: Significant omental and serosal adhesion encasing the uterus, nml tubes and ovaries Path: cervix, uterus, tubes and ovaries ISAIAH WALSH MD Nov 25, 2019 11:47
[2019-11-25] MEDS ORDERED: KETOROLAC 15 MG/ML VIAL. IV PRN (12:00)
[2019-11-25] MEDS ORDERED: DEXTROSE 50% 25 GM / 50ML DISP.SYRIN. IV PRN (12:00)
[2019-11-25] MEDS ORDERED: diphenhydrAMINE 50 MG/ML VIAL IV PRN (12:00)
[2019-11-25] MEDS ORDERED: IBUPROFEN 200 MG TABLET. PO PRN (12:00)
[2019-11-25] MEDS ORDERED: MORPHINE SULFATE 2 MG/ML VIAL. IV PRN (12:00)
[2019-11-25] MEDS ORDERED: NALOXONE 0.4 MG/ML VIAL. IV PRN (12:00)
[2019-11-25] MEDS ORDERED: oxyCODONE/APAP 5/325 1 TAB TABLET PO PRN (12:00)
[2019-11-25] MEDS ORDERED: 0.9 % SODIUM CHLORIDE 10 ML DISP.SYRIN. IV PRN (12:00)
[2019-11-25] MEDS ORDERED: diphenhydrAMINE HCL 25 MG CAPSULE PO PRN (12:00)
[2019-11-25] MEDS: fentaNYL PF VIAL 100 MCG/2 ML VIAL IV PRN ×2 (12:10→12:27)
[2019-11-25] MEDS ORDERED: fentaNYL PF VIAL 100 MCG/2 ML VIAL IV PRN (12:30)
[2019-11-25] MEDS ORDERED: PROCHLORPERAZINE 10 MG/2 ML VIAL. IV PRN (12:30)
[2019-11-25] MEDS ORDERED: MORPHINE SULFATE 2 MG/ML VIAL. ONE (12:30)
[2019-11-25] MEDS: MORPHINE SULFATE 2 MG/ML VIAL. IV PRN ×2 (12:32→12:43)
[2019-11-25] MEDS ORDERED: PROCHLORPERAZINE 10 MG/2 ML VIAL. ONE (12:37)
[2019-11-25] MEDS: PROCHLORPERAZINE 10 MG/2 ML VIAL. IV PRN ×2 (12:39→12:50)
--- NOTE | 2019-11-25 14:34 | OP ---
DATE OF SURGERY: 11/25/2019 PREOPERATIVE DIAGNOSES: 1. Abnormal uterine bleeding. 2. Menorrhagia. 3. Dysmenorrhea. 4. Pelvic pain. 5. Fibroids. 6. History of a bladder suspension with mesh. 7. History of x 1. 8. Lupus. 9. Fibromyalgia. 10. Asthma. POSTOPERATIVE DIAGNOSES: 1. Abnormal uterine bleeding. 2. Menorrhagia. 3. Dysmenorrhea. 4. Pelvic pain. 5. Fibroids. 6. History of a bladder suspension with mesh. 7. History of x 1. 8. Lupus. 9. Fibromyalgia. 10. Asthma. PROCEDURE: Lysis of adhesions, laparoscopic-assisted vaginal hysterectomy with bilateral salpingo-oophorectomy, cystoscopy. SURGEON: Marcin Walsh MD ANESTHESIA: General endotracheal intubation. ESTIMATED BLOOD LOSS: 500 mL. FLUIDS: 2 liters. URINE OUTPUT: 500 mL. COMPLICATIONS: None. FINDINGS: Significant omental and serosal adhesions encasing the uterus. Normal tubes and ovaries noted. PATHOLOGY: Cervix, uterus, tubes and ovaries. DESCRIPTION OF PROCEDURE: The patient was taken to the operating room where general endotracheal intubation was obtained without difficulty. The patient was prepped and draped in a normal sterile fashion. Attention was first turned to the vagina where speculum was placed to visualize the cervix. The anterior lip of the cervix was then grasped with a single tooth tenaculum and an acorn uterine manipulator was then placed into the cervix. At that point, the speculum was removed. Shepherd catheter was then placed. Attention was then turned to the abdomen where a 5 mm skin incision was placed in her infraumbilical fold. A Veress needle was introduced into the incision. The abdomen was then attempted to be insufflated through the Veress needle, but the opening pressure was greater than 15 mmHg, thereby making it clear that the Veress needle was not in. The Veress needle was removed and a 5 mm trocar was then placed directly into the abdominal cavity. Intra-abdominal placement was confirmed with the laparoscope. At that point, the intraabdominal cavity was insufflated to 15 mmHg. Once that had been sufficiently insufflated, survey of the abdomen and pelvis revealed significant adhesions of the omentum to the anterior abdominal wall as well as significant serosal adhesions between the uterus and the anterior abdominal wall. Due to the amount of adhesions, visualization of the pelvic structures was difficult due to the obstructed view. There was an area clear adhesions on the left where a second trocar could be placed. At that point, a second trocar was then placed approximately two-thirds between the ischial spine and the umbilicus on the left, first by making a 5 mm skin incision followed by placing the trocar under direct visualization of the laparoscope. At that point, the right side of the pelvis was unable to be seen because of omental adhesion that were directly lateral to the umbilical port extended superiorly past the port. There was no way to maneuver the laparoscope around this adhesion. At that point, the laparoscope was moved from the umbilical port to the lateral port. With the laparoscope in the lateral port, the midline adhesion could be avoided to gain a clear visualization of the right sidewall, but not at the normal location were a lateral port would be placed. So, the right trocar was then placed approximately 2 cm superior of the contralateral port, first by making a 5 mm incision and then placing the trocar under direct visualization with the laparoscope. At that point, attempts were made with these 3 ports to see if the omental adhesions could be taken down, but due to the poor visualization and the location of the instruments it was not possible. Therefore, a fourth port was placed on the left side approximately 3 cm caudal to the subcostal margin in the midclavicular line. This was also placed first by making a 5 mm skin incision, then placing the 5-mm trocar under direct visualization of the laparoscope. At that point, the laparoscope was then placed into this port. This was sufficient to allow for visualization of the origin of the omental adhesions to the anterior abdominal wall. The omentum was taken off the abdominal wall with traction as well as using the LigaSure device by first ensuring that no bowel was encased in the omentum. Once the omentum was taken down, better visualization of the pelvis revealed significant serosal adhesions on the anterior aspect of the uterus. Although these adhesions were thick, a plane was able to be created to allow for the LigaSure device to be used safely ensuring that no surrounding structures such as the bowel or the bladder were contained in the take down. The takedown of the serosal adhesions allowed for the orthodoxy of her anatomy. Once the anatomy was less obscured, both of the patient's fibroids were noted, one fundal and then the other noted on the right side of the uterus, both of which did not obstruct taking down any of the pedicles. At that point, the tube on the right was grasped and elevated to allow for identification of the ovarian vessels. LigaSure device was then used to coagulate and cut through the ovarian vessels to reach the uterine pedicle. At that point, the LigaSure device was used to cut through the round ligament. Once the round ligament and ovarian pedicle were ligated, LigaSure device was used to serially coagulate and cut the uterine pedicles to the level of the uterine artery. At that point, the peritoneum was undermined to allow for the creation of a bladder flap. This was then brought to the midline. A few additional bites were taken of the uterine pedicles on the left with the LigaSure device. At that point, attention was then turned to the left where the left tube was grasped and elevated to allow for the identification of the ovarian pedicle on the left and then the LigaSure device was then used to coagulate and cut the ovarian pedicle. Once this was free, the left round ligament was then coagulated and cut with the LigaSure device. The uterine pedicles were then serially coagulated and cut to the level of the uterine artery. The bladder flap was then completed on the left and where they met at the midline. Once good hemostasis was noted, the instruments were removed and attention was then turned to the vagina where the cervix was circumferentially cut with the Bovie device. At that point, the pubovesical cervical fascia was then dissected from the bladder with Metzenbaum scissors. Once the anterior cul-de-sac had been entered, attention was then turned to the posterior cul-de-sac where Feliz scissors were used to enter the peritoneum posteriorly. At that point, the Antonietta clamp was used to grasp the uterosacral ligament on the left. This was then cut and tagged with 0 Vicryl. This was then performed on the right side where the uterosacral ligament was then grasped with a Antonietta clamp, cut, and tied. Once this had been performed, the uterus was serially clamped, cut, and tied until all pedicles were free. At that point, the uterus was able to be delivered and both tubes and ovary were noted with the specimen. At that point, good hemostasis was noted. The vaginal cuff was closed by first making a rudefi-yr-smxqa stitch on the left lateral edge with the second pass including the left uterosacral ligament. This was then tagged. Attention was then turned to the right side of the vaginal cuff where a jsmrek-sx-ayggb stitch was then placed at the lateral edge with the second pass including the right uterosacral ligament. Three additional nhhxrq-er-swezk stitches were used to close the remainder of the cuff. The cuff was then irrigated. Good hemostasis was noted. All the stitches were cut. Attention was then turned to the abdomen again where the abdomen was insufflated. A survey of the vaginal cuff revealed good hemostasis. The ureters were observed peristalsing. At that point, the pelvis was irrigated. Attention was then turned to the vagina where the Shepherd catheter was removed and a cystoscope was then placed into the urethra. The methylene blue was then seen ejected from both ureteral orifices. At that point, the cystoscope was removed and the Shepherd was replaced. At that point, the instruments were removed from the laparoscopic portion of the case and the laparoscopic incisions were then closed with 4-0 Monocryl. At that point, the patient tolerated the procedure well and was taken to the recovery room in stable condition. Sponges, laps, and needles were correct x 3. MARCIN WALSH MD DR: JAD/selin JOB#: [id number] / [id number] ABDIRASHID
[2019-11-25] MEDS ORDERED: KETOROLAC 30 MG/ML VIAL. IV PRN (15:02)
[2019-11-25] MEDS ORDERED: SIMETHICONE 80 MG TAB.CHEW PO PRN (17:30)
[2019-11-25] MEDS: oxyCODONE/APAP 5/325 1 TAB TABLET PO PRN (20:09)
[2019-11-26] MEDS: oxyCODONE/APAP 5/325 1 TAB TABLET PO PRN ×2 (00:16→05:29)
[2019-11-26 00:23] VITALS: BP 98/57
[2019-11-26 00:27] VITALS: BP 133/67
[2019-11-26] MEDS: DOCUSATE SODIUM 100 MG CAPSULE. PO SCH ×2 (05:29→09:00)
[2019-11-26 05:41] VITALS: BP 105/63
[2019-11-26 08:11] LABS: BASO % 0 % (0-3); EOS % 0 % (0-3); HEMATOCRIT 29.2 % (36.0-47.0); HEMOGLOBIN 9.5 g/dL (12.0-15.5); LYMPH # 1.1 x10^3/uL (1.0-4.8); LYMPH % 10 % (24-48); MEAN CORPUSCULAR HEMOGLOBIN 25 pg (25-35); MEAN CORPUSCULAR HGB CONC 33 g/dL (31-37); MEAN CORPUSCULAR VOLUME 78 fL (79-100); MONO % 9 % (0-9); NEUT % 81 % (31-73); PLATELET COUNT 210 x10^3/uL (140-400); RED BLOOD COUNT 3.74 x10^6/uL (3.50-5.40); RED CELL DISTRIBUTION WIDTH 17.6 % (11.5-14.5); WHITE BLOOD COUNT 11.1 x10^3/uL (4.0-11.0)
[2019-11-26 08:16] LABS: CALCIUM 7.5 mg/dL (8.5-10.1); CREATININE 1.4 mg/dL (0.6-1.0); POTASSIUM 4.2 mmol/L (3.5-5.1)
[2019-11-26] MEDS ORDERED: DOCU-109 PO (10:05)
[2019-11-26] MEDS ORDERED: OXYC1TAB15 PO (10:05)
[2019-11-26] MEDS ORDERED: IBUP-1060 PO (10:05)
--- NOTE | 2019-11-26 10:17 | PDOC ---
DATA CAPTURE CLERK PROGRESS NOTE Subjective: Pt with good pain control. Lizzy PO. Voiding. The pt has noticed some hot flashes this am. Objective: Vital Signs: Vital Signs Date Time Temp Pulse Resp B/P (MAP) Pulse Ox O2 Delivery O2 Flow Rate FiO2 11/25/19 07:52 97.4 75 16 140/80 98 Room Air 97.4 11/25/19 11:48 10 Vital Signs Date Time Temp Pulse Resp B/P (MAP) Pulse Ox O2 Delivery O2 Flow Rate FiO2 11/26/19 10:08 18 Room Air 11/26/19 05:41 98.1 95 105/63 (77) 98 98.1 11/25/19 12:43 10.0 Labs: Laboratory Tests Test 11/26/19 07:55 White Blood Count 11.1 x10^3/uL (4.0-11.0) H Red Blood Count 3.74 x10^6/uL (3.50-5.40) Hemoglobin 9.5 g/dL (12.0-15.5) L Hematocrit 29.2 % (36.0-47.0) L Mean Corpuscular Volume 78 fL (79-100) L Mean Corpuscular Hemoglobin 25 pg (25-35) Mean Corpuscular Hemoglobin Concent 33 g/dL (31-37) Red Cell Distribution Width 17.6 % (11.5-14.5) H Platelet Count 210 x10^3/uL (140-400) Neutrophils (%) (Auto) 81 % (31-73) H Lymphocytes (%) (Auto) 10 % (24-48) L Monocytes (%) (Auto) 9 % (0-9) Eosinophils (%) (Auto) 0 % (0-3) Basophils (%) (Auto) 0 % (0-3) Neutrophils # (Auto) 9.0 x10^3/uL (1.8-7.7) H Lymphocytes # (Auto) 1.1 x10^3/uL (1.0-4.8) Monocytes # (Auto) 1.0 x10^3/uL (0.0-1.1) Eosinophils # (Auto) 0.0 x10^3/uL (0.0-0.7) Basophils # (Auto) 0.0 x10^3/uL (0.0-0.2) Sodium Level 139 mmol/L (136-145) Potassium Level 4.2 mmol/L (3.5-5.1) Chloride Level 105 mmol/L (98-107) Carbon Dioxide Level 26 mmol/L (21-32) Anion Gap 8 (6-14) Blood Urea Nitrogen 15 mg/dL (7-20) Creatinine 1.4 mg/dL (0.6-1.0) H Estimated GFR (Cockcroft-Gault) 48.0 Glucose Level 118 mg/dL (70-99) H Calcium Level 7.5 mg/dL (8.5-10.1) L Laboratory Tests 11/26/19 07:55 Laboratory Tests 11/26/19 07:55 Laboratory Tests 11/26/19 07:55 Physical Exam: GENERAL: No apparent distress. Alert and oriented. HEENT: Head normocephalic, atraumatic. NECK: Supple LUNGS: Clear to auscultation. HEART: RRR, S1, S2 present, pulses intact ABDOMEN: Soft, positive bowel sounds. EXTREMITIES: No cyanosis or edema. NEUROLOGIC: Normal speech, normal tone PSYCHIATRIC: Normal affect, normal mood. SKIN: No ulceration. Inc: C/D/I Assessment & Plan: A/P 49y POD #1 s/p LAVH/BSO 1.) PO doing well 2.) Indications - AUB, Fibroids, Pelvic pain, dysmenorrhea, menorrhagia 3.) Hgb 12.7 -> 9.5 4.) Lupus - managed per PCP 5.) Fibromyalgia 6.) Asthma - managed per PCP 7.) PTSD, Depression, Anxiety 8.) Gait issue - managed per Neurology 9.) D/C home ISAIAH WALSH MD Nov 26, 2019 10:17
--- NOTE | 2019-11-26 10:54 | DS ---
DATE OF DISCHARGE: 11/26/2019 ADMISSION DIAGNOSES: 1. Abnormal uterine bleeding. 2. Menorrhagia. 3. Dysmenorrhea. 4. Pelvic pain. 5. Fibroids. 6. History of bladder suspension with mesh. 7. History of section x 1. 8. Lupus. 9. Fibromyalgia. 10. Asthma. 11. Posttraumatic stress disorder. 12. Depression. 13. Anxiety. DISCHARGE DIAGNOSES 1. Abnormal uterine bleeding. 2. Menorrhagia. 3. Dysmenorrhea. 4. Pelvic pain. 5. Fibroids. 6. History of bladder suspension with mesh. 7. History of section x 1. 8. Lupus. 9. Fibromyalgia. 10. Asthma. 11. Posttraumatic stress disorder. 12. Depression. 13. Anxiety. PROCEDURE: Lysis of adhesions, laparoscopic-assisted vaginal hysterectomy with bilateral salpingo-oophorectomy and cystoscopy. BRIEF HOSPITAL COURSE: The patient is a 49-year-old 11, para 8-0-3-8 who was referred from [facility] for irregular bleeding, pelvic pain, fibroids and a thickened endometrium. The patient underwent evaluation. The patient had reported lower abdominal pain since 2019. The patient was still having cycles, so was told that the thickened endometrium most likely was not ominous. The patient underwent endometrial biopsy that returned benign. Discussed the options with the patient regarding treatment for her pelvic pain and bleeding issues. The patient ultimately decided for a hysterectomy. The patient underwent said procedure on 11/25/2019. See operative note for full detail. By postop day #1, the patient was meeting all discharge criteria and desired discharge home. Of note, the patient reported that she had some increased hot flashes. Postoperatively, her hemoglobin was found to be 12.7 on admission and postoperatively was found to be 9.5. DISCHARGE INSTRUCTIONS: The patient was told not to lift anything greater than 20 pounds, have pelvic rest for 6 weeks, not to drive on narcotics. Call if she has fevers, chills, nausea, vomiting, abdominal pain or any additional questions or concerns. FOLLOWUP APPOINTMENT: The patient is to follow up in 1 week's time. Her appointment was given to her at her last visit. DISCHARGE MEDICATIONS: The patient was given a prescription for Percocet 5, 15 pills; Motrin 800 mg, 30 pills and Colace 100 mg, 30 pills. ISAIAH WALSH MD DR: Haile JOB#: [id number] / [id number]
[2019-11-26 12:30] VITALS: BP 117/82
--- NOTE | 2019-11-26 12:35 | NUR ---
Discharge and follow up instructions reviewed and given to pt along with 3 printed RX. Pt verbalized understanding and denied questions or concerns at time of D/C. Pt taken out of hospital per W/C and helped into her cousins car.
--- NOTE | 2019-11-26 17:06 | PATHOLOGY ---
[facility] Accession Number: [id number] . 01 Material submitted: . uterus - UTERUS, CERVIX, BILATERAL TUBES AND OVARIES. Modifiers: bilateral . 01 Clinical history: . Uterine fibroids, thickened endometrium, pelvic pain, irregular menses, dysmenorrhea . 02 Diagnosis: Uterus and attached bilateral fallopian tubes and ovaries, laparoscopic assisted vaginal hysterectomy with bilateral salpingo-oophorectomy: - Leiomyomas, uterine corpus, submucosal/intramural/subserosal, the largest measuring up to 5.9 cm in greatest dimension (uterine weight 284 grams). - Mild chronic cervicitis with focal squamous metaplasia. - Nabothian cysts, cervix. - Secretory endometrium. - Endometrial polyp, showing focal simple hyperplasia. - Adenomyosis, uterine corpus, subbasal. - Status post bilateral tubal ligation. - Cystic [place]ard rests of bilateral fallopian tubes. - Cystic follicle of right ovary. - Follicular cyst and hemorrhagic corpus luteum cyst of left ovary. (JPM:shila; 11/26/2019) R 11/26/2019 1646 Local . 02 Comment: There is no atypia or evidence of malignancy. (BEBOM:shila; 11/26/2019) . 02 Electronically signed: . Rainer Stein MD, Pathologist NPI- [id number] . 01 Gross description: . The specimen is received in formalin, labeled "Stephanie Stafford, uterus cervix bilateral tubes and ovaries" and consists of a 284 g total hysterectomy specimen with distorted uterus and attached cervix and bilateral tubo-ovarian complexes. The uterus and cervix measure 15.5 x 9.5 x 6.4 cm. The right tubo-ovarian complex consists of a fimbriated fallopian tube measuring 7.0 cm in length and up to 0.6 cm in diameter attached to a cystic 3.3 x 2.1 x 1.9 cm ovary. The left fimbriated fallopian tube measures 6.2 cm in length and up to 0.8 cm in diameter attached to a cystic 3.4 x 2.5 x 2.4 cm ovary. Both fallopian tubes are status post tubal ligation and show multiple paratubal cysts. The uterine serosa is pink-sol smooth shiny with anterior cautery artifact. The 1.0 cm circular cervical os is surrounded by glistening pink ectocervical mucosa. It is bivalved revealing a smooth to corrugated endocervical canal measuring up to 5.0 cm in length. The endometrial cavity is roughly triangular measuring 5.4 cm in length and 3.5 cm in width lined by pink-red endometrium measuring 0.1 cm. Present within the posterior aspect is a 2.5 x 1.8 cm polyp. Multiple submucosal, intramural and subserosal nodules are present measuring up to 5.9 cm. The cervix reveals nabothian cyst. The myometrium is pink-sol and measures up to 3.0 cm. The nodules show whorled white-sol cut surfaces. . Both fallopian tubes display a dilated proximal lumen and a well-defined central distal lumen. The right ovary reveals a few subcortical uniloculated cysts containing clear fluid measuring up to 1.5 cm. The left ovary reveals a 2.5 cm clear fluid-filled cyst as well as a large corpora lutea. The cyst shows a smooth pink lining with no papillary excrescences. Inner Diameter Grinder Tool sections are submitted as follows: . A1: Anterior cervix A2: Posterior cervix A3: Anterior endomyometrium A4: Posterior endomyometrium A5-A6: Entire polyp A7-A9: Nodules A10: Right fallopian tube A11: Right ovary A12: Left fallopian tube A13: Left ovary (SDY; 11/25/2019) SYU/SYU 11/25/2019 1657 Local . 02 Pathologist provided ICD-10: D25.0, D25.1, D25.2, N72, N87.9, N88.8, N84.0, N80.0, N83.01, N83.02, N83.1 . 02 CPT . 225434 Specimen Comment: A courtesy copy of this report has been sent to [phone], [phone] Specimen Comment: [id number] Specimen Comment: Report sent to / DR CALLOWAY Performed at: [address], [place] [id number] MD Joaquín Hernandez MD Phone: [phone] Performed at: 02 [facility] [address] [place], [place] [id number] MD Rainer Stein MD Phone: [phone]
== END 2019-11-26 12:35 | disposition home or self-care (01) ==
LOC: SURG 06:39 → 3 NORTH 13:48
PROVIDERS: ADMIT Obstetrics & Gynecology; ATTEND Obstetrics & Gynecology
DX: N93.9 Abnormal uterine and vaginal bleeding, unspecified (principal); N92.0 Excessive and frequent menstruation with regular cycle; N94.6 Dysmenorrhea, unspecified; R10.2 Pelvic and perineal pain; D25.9 Leiomyoma of uterus, unspecified; M32.9 Systemic lupus erythematosus, unspecified; J45.909 Unspecified asthma, uncomplicated; K66.0 Peritoneal adhesions (postprocedural) (postinfection); F43.10 Post-traumatic stress disorder, unspecified; F41.9 Anxiety disorder, unspecified; F32.9 Major depressive disorder, single episode, unspecified; Z98.891 History of uterine scar from previous surgery
CPT/HCPCS: 36415; 58554; 80048; 81025; 85025; 86850; 86900; 86901; 88307; 96374; A7015; G0378; G0379; J0696; J0780; J1100; J1885; J2250; J2270; J2405; J2704; J2710; J3010; J3490; J7030; J7042; Q9968; A4461

== ENCOUNTER 2020-03-11 19:42 | Emergency (ER) | payer MEDICAID ==
[~2020-03-11] VITALS: Ht 162.6 cm; Wt 87.7 kg
[~2020-03-11 19:42] MED LIST changes: +DOCU-109 PO; +IBUP-1060 PO; +OXYC1TAB15 PO
[2020-03-11 20:00] VITALS: BP 141/75
[2020-03-11] MEDS ORDERED: CYCLOBENZAPRINE 10 MG TABLET. PO ONE (20:15)
[2020-03-11] MEDS ORDERED: HYDROcodone/APAP 5/325MG 1 TAB TABLET PO ONE (20:15)
--- NOTE | 2020-03-11 20:30 | PHYS DOC ---
Past Medical History Past Medical History: Anxiety, Asthma, Depression, Diabetes-Type II, Fibr omyalgia, Other Additional Past Medical Histor: PTSD,DEGENERATIVE BONE DISEASE,STEP GATE DYSFUNCTION,Lupus (LARA CONDE DIRECTOR OF MARKETING AND PROMOTIONS) Past Surgical History: Cholecystectomy, , Tonsillectomy, Other Additional Past Surgical Histo: BLADDER SLING, R arm (LARA CONDE DIRECTOR OF MARKETING AND PROMOTIONS) Smoking Status: Never Smoker Alcohol Use: Rarely Drug Use: Marijuana (LARA CONDE DIRECTOR OF MARKETING AND PROMOTIONS) General Adult EDM: Chief Complaint: KNEE INJURY HPI: HPI: Patient is a 49 year old female who presents with states she was going down some stairs using her cane yesterday and her leg started to give out. She states that the back of her knee and the anterior knee also hurts. She states it feels like a stretching or pulling type pain. She states is getting stiff. She rates her pain 8 out of 10. She states she last took something for pain 2 days ago. Patient has her own knee brace that she bought from the store on her knee. She does have full range of motion of the knee it is just painful. There is no swelling of the joint or laxity. Patient denies any numbness or tingling, skin color changes, weakness, skin temperature changes. Pedal pulses strong and present. Patient has a history of stiff gait dysfunction, cholecystectomy, C- section, tonsils, anxiety, asthma, fibromyalgia, depression, diabetes, PTSD, degenerative disc disease. She denies hitting her head, loss of consciousness, chest pain, shortness of air, nausea, vomiting, dizziness, focal weakness. (LARA CONDE DIRECTOR OF MARKETING AND PROMOTIONS) Review of Systems: Review of Systems: Constitutional: Denies fever or chills. [] Eyes: Denies change in visual acuity. [] HENT: Denies nasal congestion or sore throat. [] Respiratory: Denies cough or shortness of breath. [] Cardiovascular: Denies chest pain or edema. [] GI: Denies abdominal pain, nausea, vomiting, bloody stools or diarrhea. [] : Denies dysuria. [] Musculoskeletal: Denies back pain. Left knee joint pain. [] Integument: Denies rash. [] Neurologic: Denies headache, focal weakness or sensory changes. [] Endocrine: Denies polyuria or polydipsia. [] Lymphatic: Denies swollen glands. [] Psychiatric: Denies depression or anxiety. [] ([facility] Heart Score: Risk Factors: Risk Factors: DM, Current or recent (<one month) smoker, HTN, HLP, family history of CAD, obesity. Risk Scores: Score 0 - 3: 2.5% MACE over next 6 weeks - Discharge Home Score 4 - 6: 20.3% MACE over next 6 weeks - Admit for Clinical Observation Score 7 - 10: 72.7% MACE over next 6 weeks - Early Invasive Strategies ([facility]) Current Medications: Current Medications Medications (Trade) Dose Ordered Sig/Amarilys Start Time Stop Time Status Last Admin Dose Admin Acetaminophen/ Hydrocodone Bitart (Lortab 5/325) 1 tab 1X ONCE 03/11/20 20:15 03/11/20 20:16 DC Cyclobenzaprine HCl (Flexeril) 10 mg 1X ONCE 03/11/20 20:15 03/11/20 20:16 DC ([facility]) Allergies: Allergies: Allergies Coded Allergies Type Severity Reaction Last Updated Verified hydrocodone Allergy Intermediate Rash 11/25/19 Yes latex Allergy Intermediate 11/24/19 Yes aspirin Adverse Reaction Intermediate Nausea and Vomiting 11/24/19 Yes Uncoded Allergies Type Severity Reaction Last Updated Verified LUBRICATING JELLY Allergy Unknown 11/24/19 ([facility]) Physical Exam: PE: Constitutional: Well developed, well nourished, no acute distress, non-toxic appearance. [] HENT: Normocephalic, atraumatic, bilateral external ears normal, oropharynx moist, no oral exudates, nose normal. [] Eyes: PERRLA, EOMI, conjunctiva normal, no discharge. [] Neck: Normal range of motion, no tenderness, supple, no stridor. [] Cardiovascular:Heart rate regular rhythm, no murmur [] Lungs & Thorax: Bilateral breath sounds clear to auscultation [] Abdomen: Bowel sounds normal, soft, no tenderness, no masses, no pulsatile masses. [] Skin: Warm, dry, no erythema, no rash. [] Back: No tenderness, no CVA tenderness. [] Extremities: Back of left knee tenderness, no cyanosis, no clubbing, ROM intact, no edema. [] Neurologic: Alert and oriented X 3, normal motor function, normal sensory function, no focal deficits noted. [] Psychologic: Affect normal, judgement normal, mood normal. [] (LARA CONDE APRN) Current Patient Data: Vital Signs: Vital Signs Date Time Temp Pulse Resp B/P (MAP) Pulse Ox O2 Delivery O2 Flow Rate FiO2 03/11/20 20:00 98.8 106 20 141/75 (97) 97 Room Air 98.8 (LARA CONDE APRN) EKG: EKG: [] (LARA CONDE APRN) Radiology/Procedures: Radiology/Procedures: [] Impression: [facility] [address] [place], [place] [id number] IMAGING REPORT Signed PATIENT: LEXIE AGUILAR EACCOUNT: [id number] : 1970 LOCATION: ER AGE: 49 SEX: F EXAM STATUS: REG ER ORD. PHYSICIAN: LARA CONDE APRN REASON: pain PROCEDURE: KNEE LEFT 4V EXAM: KNEE LEFT 4V 03/11/2020 8:13 PM CLINICAL INDICATION:Pain COMPARISON:None TECHNIQUE:4 views of the left knee FINDINGS:No acute fracture. Alignment is normal. Joint spaces are maintained. No joint effusion or soft tissue abnormality. IMPRESSION:No acute osseous abnormality. Electronically signed by: Cortney Chavez MD (03/11/2020 8:59 PM) [id number] DICTATED and SIGNED BY: CORTNEY CHAVEZ MD DATE: 03/11/202058 (LARA CONDE APRN) Course & Med Decision Making: Course & Med Decision Making Pertinent Labs and Imaging studies reviewed. (See chart for details) See HPI. Patient is neurologically intact. Skin pink warm and dry. Alert and oriented x4. Speaks in full clear sentences. Patient is using a cane to ambulate. She is putting pressure on the extremity. She states nothing makes it better or worse. She denies any back or neck pain. Patient is given Velpen and orphenadrine in the ED. [] (LARA CONDE APRN) Course & Med Decision Making I have reviewed the PA/HAND MITER OPERATOR's note and Plan of Care. I was available for consultation as needed during the patient's visit in the emergency department. I agree with the clinical impression, plans and disposition. (KAYLA ABDI MD) Dragon Disclaimer: Dragon Disclaimer: This electronic medical record was generated, in whole or in part, using a voice recognition dictation system. (LARA CONDE APRN) Departure Departure Impression: Primary Impression: Fall Qualified Codes: W19.XXXA - Unspecified fall, initial encounter Additional Impression: Knee pain Qualified Codes: M25.562 - Pain in left knee Disposition: HOME, SELF-CARE Condition: STABLE Referrals: DC CALLOWAY MD (PCP) XANDER SHARIF II, MD Patient Instructions: Fall Prevention and Home Safety, Knee Pain, [id number] Additional Instructions: Follow-up with your primary care physician or the orthopedic I have referred you to. Wear the knee immobilizer as much as possible to keep the joint stabilized. Use ice or heat to help with pain. Take ibuprofen for your pain or tramadol for pain. Scripts Tramadol Hcl (TRAMADOL HCL) 50 Mg Tablet 50 MG PO Q6HRS PRN for PAIN, #10 TAB Prov: LARA CONDE APRN 03/11/20 LARA CONDE APRN Mar 11, 2020 20:30 KAYLA ABDI MD Mar 11, 2020 23:35
--- NOTE | 2020-03-11 21:02 | RAD ---
EXAM: KNEE LEFT 4V 03/11/2020 8:13 PM CLINICAL INDICATION:Pain COMPARISON:None TECHNIQUE:4 views of the left knee FINDINGS:No acute fracture. Alignment is normal. Joint spaces are maintained. No joint effusion or soft tissue abnormality. IMPRESSION:No acute osseous abnormality. Electronically signed by: Cortney Chavez MD (03/11/2020 8:59 PM) [id number]
[2020-03-11] MEDS ORDERED: TRAM50TA PO (21:15)
== END 2020-03-11 21:52 | disposition home or self-care (01) ==
LOC: ER 19:42
DX: M25.562 Pain in left knee (principal); J45.909 Unspecified asthma, uncomplicated; E11.9 Type 2 diabetes mellitus without complications; F43.10 Post-traumatic stress disorder, unspecified; Z88.5 Allergy status to narcotic agent; Z91.040 Latex allergy status; Z88.6 Allergy status to analgesic agent; Z91.018 Allergy to other foods
CPT/HCPCS: 29505; 73564; 99284

== ENCOUNTER 2020-09-28 14:15 | Emergency (ER) | payer MEDICAID ==
[~2020-09-28] VITALS: Ht 162.6 cm; Wt 98.9 kg
[~2020-09-28 14:15] MED LIST changes: +TRAM50TA PO
[2020-09-28 16:12] LABS: BILIRUBIN,URINE NEGATIVE (NEG); CLARITY,URINE CLEAR; COLOR,URINE YELLOW; NITRITE,URINE NEGATIVE (NEG); PROTEIN,URINE 100 mg/dL (NEG-TRACE)
[2020-09-28] MEDS ORDERED: IV NORMAL SALINE 1000ML BAG 1,000 ML IV SCH (16:15)
[2020-09-28] MEDS ORDERED: methylPREDNISolone SOD SUCC PF 125 MG/2 ML VIAL. IV ONE (16:15)
[2020-09-28] MEDS ORDERED: ALBUTEROL SULFATE 2.5 MG/3 ML NEBU. NEB ONE ×2 (16:15→20:30)
--- NOTE | 2020-09-28 16:22 | RAD ---
EXAM: Chest, single view. HISTORY: Shortness of air. COMPARISON: 09/17/2018. FINDINGS: A frontal view of the chest is obtained. There is no infiltrate, pleural effusion or pneumo thorax. The heart is normal in size. IMPRESSION: No acute pulmonary finding. Electronically signed by: Onelia Ocampo MD (09/28/2020 4:20 PM) [id number]
[2020-09-28 16:27] LABS: BACTERIA,URINE MODERATE /HPF (0-FEW); RBC,URINE 0 /HPF (0-2)
[2020-09-28 16:59] LABS: BASO # 0.1 x10^3/uL (0.0-0.2); BASO % 1 % (0-3); EOS # 0.7 x10^3/uL (0.0-0.7); EOS % 8 % (0-3); HEMATOCRIT 45.5 % (36.0-47.0); HEMOGLOBIN 15.5 g/dL (12.0-15.5); LYMPH % 37 % (24-48); MEAN CORPUSCULAR HEMOGLOBIN 29 pg (25-35); MEAN CORPUSCULAR HGB CONC 34 g/dL (31-37); MEAN CORPUSCULAR VOLUME 86 fL (79-100); MONO # 0.7 x10^3/uL (0.0-1.1); MONO % 9 % (0-9); NEUT # 3.7 x10^3/uL (1.8-7.7); NEUT % 46 % (31-73); PLATELET COUNT 218 x10^3/uL (140-400); RED BLOOD COUNT 5.32 x10^6/uL (3.50-5.40); RED CELL DISTRIBUTION WIDTH 14.3 % (11.5-14.5); WHITE BLOOD COUNT 8.2 x10^3/uL (4.0-11.0)
[2020-09-28 17:16] LABS: CREATININE 1.1 mg/dL (0.6-1.0); GFR 63.1
[2020-09-28 17:21] LABS: ALBUMIN 3.9 g/dL (3.4-5.0); TOTAL BILIRUBIN 0.3 mg/dL (0.2-1.0); TOTAL PROTEIN 7.9 g/dL (6.4-8.2)
[2020-09-28] MEDS ORDERED: IOHEXOL 350 MG/ML 100 ML VIAL. IV ONE (17:30)
[2020-09-28] MEDS ORDERED: CONTRAST GIVEN. MC PRN (17:30)
[2020-09-28] MEDS ORDERED: traMADol 50 MG TABLET PO ONE (17:45)
--- NOTE | 2020-09-28 18:06 | PHYS DOC ---
Past Medical History Past Medical History: Anxiety, Asthma, Depression, Diabetes-Type II, Fibromyalgia, Other Additional Past Medical Histor: PTSD,DEGENERATIVE BONE DISEASE,STEP GATE DYSFUNCTION,Lupus (LARA CONDE APRN) Past Surgical History: Cholecystectomy, , Tonsillectomy, Other Additional Past Surgical Histo: BLADDER SLING, R arm (LARA CONDE FIRE EXTINGUISHER [employer]INKLER INSPECTOR) Smoking Status: Never Smoker Alcohol Use: Rarely Drug Use: Marijuana (LARA CONDE APRN) General Adult EDM: Chief Complaint: ASTHMA HPI: HPI: Patient is a 50 year old female who presents with 2 weeks of shortness of breath, wheezing, nasal congestion, fever. She states she is been taking Zyrtec and Mucinex. States she has had some shortness of breath and pain with breathing mostly on the left side. States her chest feels tight. She states she cannot live on the left side due to the tightness and shortness of breath that occurs. Patient has a history of asthma, anxiety, depression, diabetes, PTSD, degenerative bone disease, lupus, cholecystectomy, fibromyalgia, C- section, colectomy. Currently rating her discomfort a 7 out of 10. She states the pain is not reproducible with movement. Patient denies dizziness, syncope, vision change, numbness or tingling, focal weakness, abdominal pain, nausea, vomiting, diarrhea, back pain. (LARA CONDE FIRE EXTINGUISHER SPRINKLER INSPECTOR) Review of Systems: Review of Systems: Constitutional: + fever or chills. [] Eyes: Denies change in visual acuity. [] HENT: + nasal congestion or denies sore throat. [] Respiratory: +cough or +shortness of breath. [] Cardiovascular: + chest pain or denies edema. [] GI: Denies abdominal pain, nausea, vomiting, bloody stools or diarrhea. [] : Denies dysuria. [] Musculoskeletal: Denies back pain or joint pain. [] Integument: Denies rash. [] Neurologic: Denies headache, focal weakness or sensory changes. [] Endocrine: Denies polyuria or polydipsia. [] Lymphatic: Denies swollen glands. [] Psychiatric: Denies depression or anxiety. [] (LARA CONDE [employer] EXTINGUISH[employer] INSPECTOR) Heart Score: C/O Chest Pain: Yes HEART Score for Chest Pain: HEART Score for Chest Pain Response (Comments) Value History Slighlty/Non-Suspicious 0 ECG Normal 0 Age >45 - < 65 1 Risk Factors 1 or 2 Risk Factors 1 Troponin < Normal Limit 0 Total 2 Risk Factors: Risk Factors: DM, Current or recent (<one month) smoker, HTN, HLP, family history of CAD, obesity. Risk Scores: Score 0 - 3: 2.5% MACE over next 6 weeks - Discharge Home Score 4 - 6: 20.3% MACE over next 6 weeks - Admit for Clinical Observation Score 7 - 10: 72.7% MACE over next 6 weeks - Early Invasive Strategies (LARA CONDE APRN) Current Medications: Current Medications Medications (Trade) Dose Ordered Sig/Amarilys Start Time Stop Time Status Last Admin Dose Admin Albuterol Sulfate (Ventolin Neb Soln) 2.5 mg 1X ONCE 09/28/20 16:15 09/28/20 16:16 DC 09/28/20 16:25 2.5 MG Info (CONTRAST GIVEN -- Rx MONITORING) 1 each PRN DAILY PRN 09/28/20 17:30 09/30/20 17:29 Iohexol (Omnipaque 350 Mg/ml) 100 ml 1X ONCE 09/28/20 17:30 09/28/20 17:31 DC 09/28/20 17:26 100 ML Methylprednisolone Sodium Succinate (SOLU-Medrol 125MG VIAL) 125 mg 1X ONCE 09/28/20 16:15 09/28/20 16:16 DC 09/28/20 16:45 125 MG Sodium Chloride 1,000 ml @ 1,000 mls/hr Q1H 09/28/20 16:15 09/28/20 17:14 DC 09/28/20 16:45 1,000 MLS/HR Tramadol HCl (Ultram) 50 mg 1X ONCE 09/28/20 17:45 09/28/20 17:46 DC (LARA CONDE APRN) Allergies: Allergies: Allergies Coded Allergies Type Severity Reaction Last Updated Verified hydrocodone Allergy Intermediate Rash 11/25/19 Yes latex Allergy Intermediate 11/24/19 Yes aspirin Adverse Reaction Intermediate Nausea and Vomiting 11/24/19 Yes Uncoded Allergies Type Severity Reaction Last Updated Verified LUBRICATING JELLY Allergy Unknown 11/24/19 (LARA CONDE APRN) Physical Exam: PE: Constitutional: Well developed, well nourished, no acute distress, non-toxic appearance. [] HENT: Normocephalic, atraumatic, bilateral external ears normal, oropharynx moist, no oral exudates, nose normal. [] Eyes: PERRLA, EOMI, conjunctiva normal, no discharge. [] Neck: Normal range of motion, no tenderness, supple, no stridor. [] Cardiovascular:Heart rate sinus arrhythmia, no murmur [] Lungs & Thorax: Bilateral upper breath sounds inspiratory and expiratory wheezing in lower lobes diminished to auscultation [] Abdomen: Bowel sounds normal, soft, no tenderness, no masses, no pulsatile masses. [] Skin: Warm, dry, no erythema, no rash. [] Back: No tenderness, no CVA tenderness. [] Extremities: No tenderness, no cyanosis, no clubbing, ROM intact, no edema. [] Neurologic: Alert and oriented X 3, normal motor function, normal sensory function, no focal deficits noted. [] Psychologic: Affect normal, judgement normal, mood normal. [] (LARA CONDE APRN) Current Patient Data: Labs: Laboratory Tests Test 09/28/20 15:45 09/28/20 16:48 Urine Collection Type Unknown Urine Color Yellow Urine Clarity Clear Urine pH 5.0 (<5.0-8.0) Urine Specific Warner 1.015 (1.000-1.030) Urine Protein 100 mg/dL (NEG-TRACE) Urine Glucose (UA) Negative mg/dL (NEG) Urine Ketones (Stick) Negative mg/dL (NEG) Urine Blood Negative (NEG) Urine Nitrite Negative (NEG) Urine Bilirubin Negative (NEG) Urine Urobilinogen Dipstick 1.0 mg/dL (0.2 mg/dL) Urine Leukocyte Esterase Negative (NEG) Urine RBC 0 /HPF (0-2) Urine WBC 1-4 /HPF (0-4) Urine Squamous Epithelial Cells Mod /LPF Urine Bacteria Moderate /HPF (0-FEW) Urine Mucus Mod /LPF White Blood Count 8.2 x10^3/uL (4.0-11.0) Red Blood Count 5.32 x10^6/uL (3.50-5.40) Hemoglobin 15.5 g/dL (12.0-15.5) Hematocrit 45.5 % (36.0-47.0) Mean Corpuscular Volume 86 fL (79-100) Mean Corpuscular Hemoglobin 29 pg (25-35) Mean Corpuscular Hemoglobin Concent 34 g/dL (31-37) Red Cell Distribution Width 14.3 % (11.5-14.5) Platelet Count 218 x10^3/uL (140-400) Neutrophils (%) (Auto) 46 % (31-73) Lymphocytes (%) (Auto) 37 % (24-48) Monocytes (%) (Auto) 9 % (0-9) Eosinophils (%) (Auto) 8 % (0-3) H Basophils (%) (Auto) 1 % (0-3) Neutrophils # (Auto) 3.7 x10^3/uL (1.8-7.7) Lymphocytes # (Auto) 3.0 x10^3/uL (1.0-4.8) Monocytes # (Auto) 0.7 x10^3/uL (0.0-1.1) Eosinophils # (Auto) 0.7 x10^3/uL (0.0-0.7) Basophils # (Auto) 0.1 x10^3/uL (0.0-0.2) Sodium Level 144 mmol/L (136-145) Potassium Level 4.0 mmol/L (3.5-5.1) Chloride Level 105 mmol/L (98-107) Carbon Dioxide Level 27 mmol/L (21-32) Anion Gap 12 (6-14) Blood Urea Nitrogen 16 mg/dL (7-20) Creatinine 1.1 mg/dL (0.6-1.0) H Estimated GFR (Cockcroft-Gault) 63.1 BUN/Creatinine Ratio 15 (6-20) Glucose Level 143 mg/dL (70-99) H Calcium Level 9.0 mg/dL (8.5-10.1) Total Bilirubin 0.3 mg/dL (0.2-1.0) Aspartate Amino Transferase (AST) 22 U/L (15-37) Alanine Aminotransferase (ALT) 44 U/L (14-59) Alkaline Phosphatase 105 U/L (46-116) Troponin I Quantitative < 0.017 ng/mL (0.000-0.055) MP-Ztd-Z-Type Natriuretic Peptide 61 pg/mL (0-124) Total Protein 7.9 g/dL (6.4-8.2) Albumin 3.9 g/dL (3.4-5.0) Albumin/Globulin Ratio 1.0 (1.0-1.7) Laboratory Tests 09/28/20 16:48 Laboratory Tests 09/28/20 16:48 Vital Signs: Vital Signs Date Time Temp Pulse Resp B/P (MAP) Pulse Ox O2 Delivery O2 Flow Rate FiO2 09/28/20 16:25 97 Room Air 09/28/20 15:45 98.4 110 20 142/88 (106) 98.4 (LARA CONDE APRN) EKG: EK and read by Dr. Nolen is sinus rhythm no STEMI [] (LARA CONDE APRN) Radiology/Procedures: Radiology/Procedures: [] Impression: [place] [address] IMAGING REPORT Signed PATIENT: LEXIE AGUILAR EACCOUNT: [id number] : 1970 LOCATION: ER AGE: 50 SEX: F EXAM STATUS: REG ER ORD. PHYSICIAN: ALRA CONDE APRN REASON: SOA, PAIN WITH BREATHING PROCEDURE: PORTABLE CHEST 1V EXAM: Chest, single view. HISTORY: Shortness of air. COMPARISON: 09/17/2018. FINDINGS: A frontal view of the chest is obtained. There is no infiltrate, pleural effusion or pneumothorax. The heart is normal in size. IMPRESSION: No acute pulmonary finding. Electronically signed by: Onelia Fuller MD (09/28/2020 4:20 PM) [id number] DICTATED and SIGNED BY: ONELIA FULLER MD DATE: 09/28/20 [id number] [address] IMAGING REPORT Signed PATIENT: LEXIE AGUILAR EACCOUNT: [id number] : 1970 LOCATION: ER AGE: 50 SEX: F EXAM STATUS: REG ER ORD. PHYSICIAN: LARA CONDE APRN REASON: SOA, TACHYCARDIC, PAIN WITH BREATHING PROCEDURE: CT ANGIOGRAPHY CHEST EXAM: CT chest with contrast - pulmonary embolus protocol CLINICAL HISTORY: SOA, TACHYCARDIC, PAIN WITH BREATHING COMPARISON: None. TECHNIQUE: CT of the chest following the administration of intravenous contrast during the pulmonary arterial phase. Axial, coronal and sagittal reformatted images were generated including MIP images. ---PQRS compliance statement - One or more of the following individualized dose reduction techniques were utilized for this study: 1. Automated exposure control 2. Adjustment of the mA and/or kV according to patient size 3. Use of iterative reconstruction technique--- FINDINGS: CHEST: Diagnostic quality: Suboptimal contrast bolus.. Pulmonary emboli: No pulmonary emboli to the level of the proximal segmental branches. More peripheral vessels are not well assessed. Right heart strain: None Pulmonary arteries: Normal in caliber. No axillary lymphadenopathy. No mediastinal or hilar lymphadenopathy. Heart is not enlarged. No pericardial effusion. No pleural effusion or pneumothorax. Linear opacities in lower lobes likely scarring/atelectasis. Visualized Upper abdomen: Hepatic hypoattenuation likely fatty liver related to phase of contrast. There has been a cholecystectomy. Bones: No aggressive osseous lesion is seen. IMPRESSION: 1. Suboptimal contrast bolus. Within these constraints, no pulmonary emboli to the level of the proximal segmental branches. More peripheral vessels are not well assessed. 2. Hepatic hypoattenuation likely fatty liver related to phase of contrast. Electronically signed by: Sherman Chavez MD (09/28/2020 6:03 PM) [facility] DICTATED and SIGNED BY: SHERMAN CHAVEZ MD DATE: 09/28/20 [id number] 0 (LARA CONDE APRN) Course & Med Decision Making: Course & Med Decision Making Pertinent Labs and Imaging studies reviewed. (See chart for details) See HPI. Alert and oriented x4. Ambulatory with a steady gait. Speaks in full clear sentences. No extremity edema. Skin pink warm and dry. Lungs have inspiratory expiratory wheezes in upper lobes and diminished in lower lobes. She is afebrile. Afebrile. Blood work unremarkable. EKG is sinus rhythm. Blood work is unremarkable. Troponin x2 is normal. CT angio chest and x-ray are normal. Heart score is a 2. Patient remains stable and vital signs are stable. Patient is given 2 breathing treatments in the ED and Solu-Medrol. [] (LARA CONDE APRN) Dragon Disclaimer: Dottie Disclaimer: This electronic medical record was generated, in whole or in part, using a voice recognition dictation system. (LARA CONDE APRN) Departure Departure Impression: Primary Impression: Asthma Qualified Codes: J45.20 - Mild intermittent asthma, uncomplicated Additional Impressions: Shortness of breath Chest pain, non-cardiac Disposition: HOME / SELF CARE / HOMELESS Condition: STABLE Referrals: DC CALLOWAY MD (PCP) Patient Instructions: Asthma, Acute Bronchospasm Additional Instructions: Follow up with primary care provider if needed. Drink plenty of fluids. Use your nebulizer every 4-6 hours. Use your inhaler as needed. Take your allergy medication every day. Take the Medrol Dosepak in its entirety. If your symptoms worsen he can return to emergency room. Scripts Albuterol Sulfate (ALBUTEROL SULFATE NEB SOLN) 2.5 Mg/3 Ml Vial.neb 1 VIAL NEB PRN Q4HRS, #50 VIAL Prov: LARA CONDE APRN 09/28/20 Albuterol Sulfate (PROAIR HFA INHALER) 8.5 Gm Hfa.aer.ad 1 PUFF INH PRN Q6HRS PRN for SHORTNESS OF BREATH, #1 EACH 0 Refills Prov: LARA CONDE APRN 09/28/20 Methylprednisolone (MEDROL) 4 Mg Tab.ds.pk 1 PKG PO UD, #1 PKG Prov: LARA CONDE APRN 09/28/20 Attending Signature Attending Signature I have participated in the care of this patient and I have reviewed and agree with all pertinent clinical information above including history, exam, and recommendations. (JESUS NOLEN DO) LARA CONDE APRN Sep 28, 2020 18:05 JESUS NOLEN DO Sep 29, 2020 13:22
--- NOTE | 2020-09-28 18:18 | EKG ---
[facility] [address] [place] [address] Test Date: 2020-09-28 Test Time: 16:22:13 Pat Name: LEXIE AGUILAR Department: Room: Gender: F Stock Chaser: : 1970 Requested By: LARA CONDE Order Number: [id number] Reading MD: Measurements Intervals [place] Rate: 93 P: 59 PA: 144 QRS: 45 QRSD: 74 T: 20 QT: 344 QTc: 430 Interpretive Statements SINUS RHYTHM LEFT ATRIAL ABNORMALITY ABNORMAL ECG RI6.02 No previous ECG available for comparison
[2020-09-28] MEDS ORDERED: METH4TAB2 PO (20:59)
[2020-09-28] MEDS ORDERED: ALBU2.5V8 INH (20:59)
[2020-09-28] MEDS ORDERED: ALBU2.5V5 NEB (21:00)
[2020-09-28 21:55] VITALS: BP 133/106
== END 2020-09-28 22:16 | disposition home or self-care (01) ==
LOC: ER 14:15
DX: J45.20 Mild intermittent asthma, uncomplicated (principal); R07.89 Other chest pain; E11.9 Type 2 diabetes mellitus without complications; F43.10 Post-traumatic stress disorder, unspecified; Z88.5 Allergy status to narcotic agent; Z91.040 Latex allergy status; Z88.6 Allergy status to analgesic agent; Z88.8 Allergy status to other drugs, medicaments and biological substances; Z91.018 Allergy to other foods
CPT/HCPCS: 36415; 71045; 71275; 80053; 81001; 83880; 84484; 85025; 87086; 93005; 94640; 96361; 96374; 99285; J2930; J7030; J7613; Q9967

== ENCOUNTER 2020-10-31 22:01 | Emergency (ER) | payer MEDICAID ==
[~2020-10-31] VITALS: Ht 162.6 cm; Wt 95.0 kg
[~2020-10-31 22:01] MED LIST changes: +ALBU2.5V8 INH; +METH4TAB2 PO
[2020-10-31] MEDS ORDERED: ALBUTEROL SULFATE 2.5 MG/3 ML NEBU. NEB ONE (22:30)
[2020-10-31] MEDS ORDERED: methylPREDNISolone SOD SUCC PF 125 MG/2 ML VIAL. IM ONE (22:30)
--- NOTE | 2020-10-31 22:53 | PHYS DOC ---
Past Medical History Past Medical History: Anxiety, Asthma, Depression, Diabetes-Type II, Fibr omyalgia, Other Additional Past Medical Histor: PTSD,DEGENERATIVE BONE DISEASE,STEP GATE DYSFUNCTION,Lupus, cpap as needed Past Surgical History: Cholecystectomy, , Tonsillectomy, Other Additional Past Surgical Histo: BLADDER SLING, R arm Smoking Status: Never Smoker Alcohol Use: Rarely Drug Use: Marijuana General Adult EDM: Chief Complaint: ASTHMA HPI: HPI: Patient is a 50 year old female past medical history asthma and lupus presents with a chief complaint of shortness of breath. Patient states she has been short of breath on and off x1 month. She states her breathing has become worse over the last 2 weeks. Patient states 2 nights she felt as if she could not c atch her breath. She felt lightheaded and as if she was going to pass out. Patient has a cough with yellow sputum production. Patient states she had a fever this afternoon of 100.4. Patient is fully vaccinated against Covid. Home treatment included albuterol nebulizer x3 with minimal relief. EMS treated patient with albuterol in route. Prior to my examination patient received another albuterol treatment and Solu- Medrol. On my exam patient continues to have diffuse wheezing. Review of Systems: Review of Systems: Constitutional: Denies fever or chills. [] Eyes: Denies change in visual acuity. [] HENT: Denies nasal congestion or sore throat. [] Respiratory: positive cough positive shortness of breath. [] Cardiovascular: Denies chest pain or edema. [] GI: Denies abdominal pain, nausea, vomiting, bloody stools or diarrhea. [] : Denies dysuria. [] Musculoskeletal: Denies back pain or joint pain. [] Integument: Denies rash. [] Neurologic: Denies headache, focal weakness or sensory changes. [] Endocrine: Denies polyuria or polydipsia. [] Lymphatic: Denies swollen glands. [] Psychiatric: Denies depression or anxiety. [] Heart Score: C/O Chest Pain: N/A Risk Factors: Risk Factors: DM, Current or recent (<one month) smoker, HTN, HLP, family history of CAD, obesity. Risk Scores: Score 0 - 3: 2.5% MACE over next 6 weeks - Discharge Home Score 4 - 6: 20.3% MACE over next 6 weeks - Admit for Clinical Observation Score 7 - 10: 72.7% MACE over next 6 weeks - Early Invasive Strategies Current Medications: Current Medications Medications (Trade) Dose Ordered Sig/Amarilys Start Time Stop Time Status Last Admin Dose Admin Albuterol Sulfate (Ventolin Neb Soln) 2.5 mg 1X ONCE 10/31/20 22:30 10/31/20 22:31 DC Methylprednisolone Sodium Succinate (SOLU-Medrol 125MG VIAL) 125 mg 1X ONCE 10/31/20 22:30 10/31/20 22:31 DC 10/31/20 22:25 125 MG Allergies: Allergies: Allergies Coded Allergies Type Severity Reaction Last Updated Verified hydrocodone Allergy Intermediate Rash 11/25/19 Yes latex Allergy Intermediate 11/24/19 Yes lubricant Allergy Intermediate LUBRICATING JELLY 10/31/20 Yes aspirin Adverse Reaction Intermediate Nausea and Vomiting 11/24/19 Yes Physical Exam: PE: Constitutional: Well developed, well nourished, no acute distress, non-toxic appearance. [] HENT: Normocephalic, atraumatic, bilateral external ears normal, oropharynx moist, no oral exudates, nose normal. [] Eyes: PERRLA, EOMI, conjunctiva normal, no discharge. [] Neck: Normal range of motion, no tenderness, supple, no stridor. [] Cardiovascular:Heart rate regular rhythm, no murmur [] Lungs & Thorax: wheezing bilateral Abdomen: Bowel sounds normal, soft, no tenderness, no masses, no pulsatile masses. [] Skin: Warm, dry, no erythema, no rash. [] Back: No tenderness, no CVA tenderness. [] Extremities: No tenderness, no cyanosis, no clubbing, ROM intact, no edema. [] Neurologic: Alert and oriented X 3, normal motor function, normal sensory function, no focal deficits noted. [] Psychologic: Affect normal, judgement normal, mood normal. [] Current Patient Data: Vital Signs: Vital Signs Date Time Temp Pulse Resp B/P (MAP) Pulse Ox O2 Delivery O2 Flow Rate FiO2 10/31/20 22:26 99 26 142/74 (96) 96 Room Air 10/31/20 22:07 98.9 98.9 EKG: EKG: [] Radiology/Procedures: Radiology/Procedures: [] Impression: EXAM: XR CHEST 1V 10/31/2020 11:17 PM CLINICAL INDICATION: Shortness of breath, wheezing COMPARISON: Chest radiograph 09/28/2020 TECHNIQUE: AP upright view the chest FINDINGS: The heart and mediastinum are normal. Lungs are well-expanded and clear. No consolidation, pleural effusion, or pneumothorax. Pulmonary vascularity is normal. The thoracic skeleton is intact. IMPRESSION: Normal chest radiograph. Course & Med Decision Making: Course & Med Decision Making Pertinent Labs and Imaging studies reviewed. (See chart for details) [] Patient was evaluated for chief complaint. Work-up consisted of laboratory analysis and radiologic imaging. Results reviewed and discussed with patient. Treatment included albuterol and DuoNeb and magnesium and Solu-Medrol. Treatment patient feels much better. Will discharge home on prednisone and Zithromax. Dragon Disclaimer: Dragon Disclaimer: This electronic medical record was generated, in whole or in part, using a voice recognition dictation system. Departure Departure Impression: Primary Impression: Asthma Disposition: HOME / SELF CARE / HOMELESS Condition: STABLE Referrals: DC CALLOWAY MD (PCP) Patient Instructions: Asthma, Adult Scripts Prednisone (PREDNISONE) 20 Mg Tablet 1 TAB PO UD for 12 Days, #15 TAB Take 2 tabs days 1,2,3 1.5 tabs days 3,4,5 1 tab days 6,7,8 0.5 tab days 9,10,11 Prov: JAMIN WATKINS I DO 11/01/20 Azithromycin (ZITHROMAX) 250 Mg Tablet 1 PKG PO UD, #6 TAB Prov: JAMIN WATKINS I DO 10/31/20 Azithromycin (ZITHROMAX) 250 Mg Tablet 1 PKG PO UD, #6 TAB Prov: JAMIN WATKINS I DO 10/31/20 JAMIN WATKINS I DO October 31, 2020 22:53
[2020-10-31] MEDS ORDERED: MAGNESIUM SULFATE 1GM 100 ML IV ONE (23:30)
[2020-10-31 23:38] LABS: BASO % 1 % (0-3); EOS # 0.4 x10^3/uL (0.0-0.7); EOS % 4 % (0-3); HEMATOCRIT 43.8 % (36.0-47.0); LYMPH # 2.4 x10^3/uL (1.0-4.8); LYMPH % 26 % (24-48); MEAN CORPUSCULAR HEMOGLOBIN 30 pg (25-35); MEAN CORPUSCULAR HGB CONC 34 g/dL (31-37); MEAN CORPUSCULAR VOLUME 86 fL (79-100); MONO # 0.4 x10^3/uL (0.0-1.1); MONO % 5 % (0-9); NEUT # 5.9 x10^3/uL (1.8-7.7); NEUT % 64 % (31-73); PLATELET COUNT 227 x10^3/uL (140-400); RED BLOOD COUNT 5.08 x10^6/uL (3.50-5.40); WHITE BLOOD COUNT 9.2 x10^3/uL (4.0-11.0)
--- NOTE | 2020-10-31 23:45 | RAD ---
EXAM: XR CHEST 1V 10/31/2020 11:17 PM CLINICAL INDICATION: Shortness of breath, wheezing COMPARISON: Chest radiograph 09/28/2020 TECHNIQUE: AP upright view the chest FINDINGS: The heart and mediastinum are normal. Lungs are well-expanded and clear. No consolidatio n, pleural effusion, or pneumothorax. Pulmonary vascularity is normal. The thoracic skeleton is int act. IMPRESSION: Normal chest radiograph. Electronically signed by: Cortney Chavez MD (10/31/2020 11:43 PM) [id number]
[2020-10-31] MEDS ORDERED: AZIT250T PO (23:50)
[2020-11-01 00:27] LABS: CALCIUM 8.3 mg/dL (8.5-10.1); GFR 70.5
[2020-11-01 00:33] LABS: ALBUMIN 3.3 g/dL (3.4-5.0); ALBUMIN/GLOBULIN RATIO 0.9 (1.0-1.7); TOTAL BILIRUBIN 0.4 mg/dL (0.2-1.0); TOTAL PROTEIN 6.8 g/dL (6.4-8.2)
[2020-11-01] MEDS ORDERED: IPRATRPIUM/ALBUTEROL 0.5/2.5MG 3 ML NEBU. NEB ONE (01:30)
[2020-11-01 01:46] VITALS: BP 124/66
[2020-11-01] MEDS ORDERED: PRED20TA PO (02:11)
== END 2020-11-01 02:19 | disposition home or self-care (01) ==
LOC: ER 22:01
DX: J45.909 Unspecified asthma, uncomplicated (principal); E11.9 Type 2 diabetes mellitus without complications; Z88.5 Allergy status to narcotic agent; Z91.040 Latex allergy status; Z88.6 Allergy status to analgesic agent; Z88.8 Allergy status to other drugs, medicaments and biological substances
CPT/HCPCS: 36415; 71045; 80053; 85025; 94640; 96365; 96372; 99284; J2930; J3475; J7613